=== PATIENT | male | born 1965 | race Caucasian/White ===

== ENCOUNTER 2021-02-15 07:53 | Outpatient (CLI) | payer OTHER, SELFPAY ==
[2021-02-15 08:25] LABS: Hemoglobin A1C 10.6 % (<5.7)
[2021-02-15 08:28] LABS: Hematocrit 43.4 % (42.0-52.0); Hemoglobin 14.7 g/dL (14.0-18.0); Mean Corpuscular HGB Conc 33.9 g/dl (32-36); Mean Corpuscular Hemoglobin 30.2 pg (26-34); Mean Corpuscular Volume 89.3 fl (80-100); Mean Platelet Volume 11.7 fl (7.4-10.4); Platelet Count Result 183 k/mm3 (150-375); Red Blood Count 4.86 M/mm3 (4.6-6.20); Red Cell Distribution Width 12.6 % (11.5-14.5); White Blood Count 6.7 K/mm3 (4.5-10.0)
[2021-02-15 08:31] LABS: Alanine Aminotransferase 52 U/L (4-50); Albumin Level 4.7 g/dL (3.5-5.1); Alkaline Phosphatase 76 U/L (38-126); Amylase 84 U/L (30-110); Anion Gap 8 mmol/L (8-16); Aspartate Amino Transferase 36 U/L (17-59); Bilirubin,Total 0.5 mg/dL (0.2-1.3); Blood Urea Nitrogen 18 mg/dL (9-20); Calcium 9.6 mg/dL (8.4-10.2); Carbon Dioxide 30 mmol/L (22-30); Chloride 103 mmol/L (98-107); Estimated Glomerular Filt Rate > 60; Glucose 252 mg/dL (65-110); Lipase 140 U/L (23-300); Potassium 4.4 mmol/L (3.4-5.0); Sodium 141 mmol/L (137-145)
[2021-02-15 09:03] LABS: Prostate Specific Antigen 0.6 ng/mL (< OR = 4.0)
[2021-02-15 10:06] LABS: Microalbumin Urine Random 32.2 mg/L (0-16.7)
[2021-02-15 10:09] LABS: Creatinine Urine 211.3 mg/dL; MALB Creatinine Ratio 15.2 mg/g (0-30)
[2021-02-19 15:37] LABS: GGT 63 U/L (3-85)
== END 2021-02-15 07:54 | disposition home or self-care (01) ==
LOC: ANHLAB 07:55
PROVIDERS: PCP Family Medicine; Visit Provider Family Medicine
DX: Z12.5 Encounter for screening for malignant neoplasm of prostate (principal); R10.13 Epigastric pain; G89.29 Other chronic pain; C85.93 Non-Hodgkin lymphoma, unspecified, intra-abdominal lymph nodes; E11.65 Type 2 diabetes mellitus with hyperglycemia
CPT/HCPCS: 36415; 80053; 82043; 82150; 82977; 83036; 83690; 84153; 85027; G0103

== ENCOUNTER 2021-09-03 08:15 | Emergency (ER) | payer OTHER, SELFPAY ==
[2021-09-03 08:25] VITALS: BP 120/64; PULSE 99; RESP 16; TEMP 36.8; O2SAT 98
--- NOTE | 2021-09-03 08:43 | ED.GENADULT ---
HPI - General Adult General Chief complaint: Unspecified Stated complaint: Chapped Lips Time Seen by Provider: 09/03/21 08:43 Source: patient Mode of arrival: ambulatory Limitations: no limitations History of Present Illness HPI narrative: 56-year-old male presents with complaint of chapped lips, lips peeling and burning for 3 weeks. Reports that he has been using Chapstick, Vaseline and several other ruhf-[id number]-yfabndn lip remedies with no relief. Only change is a new medication 3 months ago. Was prescribed Jentadueto for his diabetes. has not seen his PCP for this problem. Denies mouth pain, mouth sores. All systems reviewed and negative except as noted above. Related Data Home Medications Medication Instructions Recorded Confirmed cyclobenzaprine 10 mg PO DIRECTED 09/03/21 09/03/21 pantoprazole PO 09/03/21 09/03/21 Allergies Allergy/AdvReac Type Severity Reaction Status Date / Time hydrocodone Allergy Intermediate Itching Verified 09/03/21 08:19 codeine Allergy Unknown Unknown Verified 09/03/21 08:19 tramadol Allergy Unknown Unknown Verified 09/03/21 08:19 prednisone AdvReac Unknown MAKES ME Verified 09/03/21 08:19 ANGRY Contrast Media Allergy Severe HIVES FEET Uncoded 09/03/21 08:19 AND HANDS, GETS PRETREATED PRIOR Review of Systems Review of Systems: CONSTITUTIONAL: Denies fever, chills, or sweats. EYES: Denies visual changes, redness, or discharge. ENT: Denies rhinorrhea, congestion, sore throat, or otalgia. CARDIOVASCULAR: Denies chest pain, palpitations, or edema. RESPIRATORY: Denies cough or dyspnea. GASTROINTESTINAL: Denies abdominal pain, nausea, vomiting, or diarrhea. GENITOURINARY: Denies dysuria or hematuria. SKIN: Denies rash or itching. Reports burning, peeling of skin to lips. MUSCULOSKELETAL: Denies back pain, joint pain, or myalgia. NEUROLOGIC: Denies headache, numbness, or weakness. PSYCHIATRIC: Denies anxiety or depression. All other systems reviewed are negative, except as documented in HPI. [facility] Past Medical History Medical History (Updated 09/03/21 @ 08:55 by Lisa Ko NP) BMI 25.0-25.9,adult BMI 26.0-26.9,adult Chronic epigastric pain Mass in neck Right hand pain Family History Family History Father Acute myocardial infarction Social History Social History Alcohol intake: current Comments At time of signature, agree with nursing past medical, surgical, social and family history. There is no relevant family history pertinent to the presenting complaint. Exam Narrative: GENERAL: This is a well-nourished, well-developed patient, in no apparent distress. HEAD: normocephalic, atraumatic. EYES: PERRL. Sclera clear/white. Vision is grossly intact. EARS: External ears normal NOSE: External nose normal NECK: Neck supple, non-tender without lymphadenopathy, masses or thyromegaly. CARDIOVASCULAR: Regular rate and rhythm without murmurs, gallops, or rubs. RESPIRATORY: Clear to auscultation. Breath sounds equal bilaterally. No wheezes, rales, or rhonchi. SKIN: warm, Dry, with no suspicious lesions or rash, good texture and turgor. Peeling skin to lips, erythematous and mildly swollen. No signs of bacterial or fungal infection. NEURO: awake, alert, and oriented to person, place and time. There were no obvious focal neurologic abnormalities. EXTREMITIES: Normal range of motion to all extremities. Course Course Level of Care: Express Care Visit Vital Signs Vital signs: Vital Signs Temperature 36.8 C 09/03/21 08:25 Pulse Rate 99 09/03/21 08:25 Respiratory Rate 16 09/03/21 08:25 Blood Pressure 120/64 09/03/21 08:25 Pulse Oximetry 98 09/03/21 08:25 Temperature 36.8 C 09/03/21 08:25 Pulse Rate 99 09/03/21 08:25 Respiratory Rate 16 09/03/21 08:25 Blood Pressure 120/64 09/03/21 08:25 Pulse Ox
== END 2021-09-03 08:58 | disposition home or self-care (01) ==
PROVIDERS: Emergency Provider Nurse Practitioner Family; PCP Family Medicine
DX: T69.8XXA Other specified effects of reduced temperature, initial encounter (principal); T38.3X5A Adverse effect of insulin and oral hypoglycemic [antidiabetic] drugs, initial encounter
CPT/HCPCS: 99211; G0463

== ENCOUNTER 2021-10-15 10:17 | Outpatient (CLI) | payer OTHER, SELFPAY ==
--- NOTE | 2021-10-15 11:30 | NEURO_ITS ---
Impression: # Complains of pain in right hand. # Subtle evolving right Carpal Tunnel Syndrome. # Needle/EMG exam not requested. Nerve Conduction Studies Anti Sensory Summary Table Stim Site NR Peak (ms) P-T Amp (?V) Site1 Site2 Delta-P (ms) Dist (cm) Dewayne (m/s) Right Median Anti Sensory (2-3nd Digit) Wrist 3.1 41.3 Wrist 2-3nd Digit 3.1 14.0 45 Wrist 3.4 34.3 Wrist 2-3nd Digit 3.1 14.0 45 Right Radial Anti Sensory (Base 1st Digit) Wrist 2.7 7.2 Wrist Base 1st Digit 2.7 0.0 Right Ulnar Anti Sensory (5th Digit) Wrist 2.7 39.2 Wrist 5th Digit 2.7 14.0 52 Motor Summary Table Stim Site NR Onset (ms) O-P Amp (mV) Site1 Site2 Delta-0 (ms) Dist (cm) Dewayne (m/s) Right Median Motor (Abd Poll Brev) Wrist 3.8 2.3 Elbow Wrist 4.8 30.0 63 Elbow 8.6 2.3 Right Ulnar Motor (Abd Dig Minimi) Wrist 2.5 4.3 A Elbow Wrist 5.6 31.0 55 A Elbow 8.1 4.0 F Wave Studies NR F-Lat (ms) L-R F-Lat (ms) Right Median (Mrkrs) (Abd Poll Brev) 28.22 Right Ulnar (Mrkrs) (Abd Dig Min) 29.45 MTDD
== END 2021-10-15 10:18 | disposition home or self-care (01) ==
PROVIDERS: PCP Family Medicine; Visit Provider Family Medicine
DX: M25.541 Pain in joints of right hand (principal); G56.01 Carpal tunnel syndrome, right upper limb
CPT/HCPCS: 95909

== ENCOUNTER 2022-07-15 08:53 | Outpatient (CLI) | payer OTHER, SELFPAY ==
--- NOTE | ~2022-07-15 | CT_ITS ---
CT Scan of the Chest without Contrast: Clinical Indication: Pulmonary nodule Technique: Contiguous sections were acquired throughout the chest without intravenous contrast. Dose reduction technique was used on this scan by utilizing automated exposure control and iterative recon struction technique. The dose-length product (DLP) was 123.74 mGy-cm. COMPARISON: 09/23/2011 Findings: There is no evidence of any significant mediastinal, hilar or axillary lymphadenopathy. Aberrant righ t subclavian artery noted. Coronary artery calcifications are present. There is no evidence of pleural or pericardial effusion. Stable small irregular density in the right upper lobe (axial image 43). Several calcified granulomas are noted. Images through the upper abdomen reveal no abnormalities. Impression: No significant abnormalities seen. Stable pulmonary findings, as noted above. Stability since 2011 is compatible with benignity. Reviewed, dictated and finalized at [facility]. Impression: No significant abnormalities seen. Stable pulmonary findings, as noted above. Stability since 2011 is compatible w ith benignity.
== END 2022-07-15 08:54 | disposition home or self-care (01) ==
LOC: ANHIMG 08:58
PROVIDERS: PCP Family Medicine; Visit Provider Family Medicine
DX: R91.1 Solitary pulmonary nodule (principal)
CPT/HCPCS: 71250

== ENCOUNTER 2023-02-11 08:07 | Emergency (ER) | payer OTHER, SELFPAY ==
[2023-02-11 08:22] VITALS: BP 133/89; PULSE 90; RESP 18; TEMP 36.5; O2SAT 100
--- NOTE | 2023-02-11 08:25 | ED.EYEPROB ---
HPI - Eye Problem General Chief complaint: Eye Problems Stated complaint: lt eye irritation Time Seen by Provider: 02/11/23 08:20 Source: patient and RN notes reviewed Mode of arrival: ambulatory Limitations: no limitations History of Present Illness HPI Narrative: 57-year-old male presents with concern for left irritation, redness, discomfort since Thursday. Reports he was exposed to his grandchild with pinkeye. He reports crusty drainage. He denies any vision changes. MD chief complaint: eye redness Related Data Allergies Allergy/AdvReac Type Severity Reaction Status Date / Time linagliptin [From [facility]] Allergy Severe Swelling Verified 02/11/23 08:23 of Lip/Tongue/Throat metformin [From [facility]eto] Allergy Severe Swelling Verified 02/11/23 08:23 of Lip/Tongue/Throat hydrocodone Allergy Intermediate Itching Verified 02/11/23 08:23 codeine Allergy Unknown Unknown Verified 02/11/23 08:23 tramadol Allergy Unknown Unknown Verified 02/11/23 08:23 dapagliflozin [From [facility]] AdvReac Intermediate Swelling Verified 02/11/23 08:23 of Lip/Tongue/Throat prednisone AdvReac Unknown MAKES ME Verified 02/11/23 08:23 ANGRY Contrast Media Allergy Severe HIVES FEET Uncoded 07/28/22 15:24 AND HANDS, GETS PRETREATED PRIOR Review of Systems Review of Systems: CONSTITUTIONAL: Denies malaise, chills, sweats, or fever. EYES: Denies visual changes. Reports left eye redness, irritation, discharge, discomfort. ENT: Denies rhinorrhea, congestion, sinus pain, otalgia or sore throat. SKIN: Denies rash or itching. NEUROLOGIC: Denies numbness, weakness, or headache. PSYCHIATRIC: Denies anxiety or depression. All systems reviewed & are unremarkable except as noted in HPI and below PMFSH Past Medical History Medical History BMI 25.0-25.9,adult BMI 26.0-26.9,adult BMI 27.0-27.9,adult BMI 28.0-28.9,adult Chronic epigastric pain Hand tendonitis Lung nodule Mass in neck Right hand pain Family History Family History Father Acute myocardial infarction Social History Social History Social History: pt is a non smoker Smoking status: Never smoker Alcohol intake: current Comments At time of signature, agree with nursing past medical, surgical, social and family history. There is no relevant family history pertinent to the presenting complaint Exam Narrative: GENERAL: Well-appearing, well-nourished, and in no acute distress. HEAD: Normocephalic, atraumatic. EYES: PERRLA, right sclera clear, and EOMI. No nystagmus. Left lower and conjunctivae injected. Upper and lower eyelid unremarkable, no periorbital edema noted ENT: Nares clear, turbinates pink, no rhinorrhea or epistaxis. Mucous membranes moist. TM pearly veloz with sharp light reflex bilaterally; no tragal tenderness. NECK: Supple. CHEST: No respiratory distress. Speaks in full sentences. HEART: Regular rate and rhythm. SKIN: Warm, dry, no visible rash. NEURO: Alert and oriented x3. PSYCH: Normal mood and affect Course Course Emergency Course: Patient is aware of diagnosis, understands and agrees to treatment plan. Anticipatory guidance given. Patient agrees to follow-up as directed and is aware of reasons to seek care at the emergency department. Portions of this record may have been created with voice recognition software Level of Care: Express Care Visit Vital Signs Vital signs: Vital Signs Temperature 97.7 F 02/11/23 08:22 Pulse Rate 90 02/11/23 08:22 Respiratory Rate 18 02/11/23 08:22 Blood Pressure 133/89 02/11/23 08:22 Pulse Oximetry 100 02/11/23 08:22 Oxygen Delivery Room Air 02/11/23 08:22 Temperature 97.7 F 02/11/23 08:22 Pulse Rate 90 02/11/23 08:22 Respiratory Rate 18 02/11/23 08:22 Blood Pres
== END 2023-02-11 08:34 | disposition home or self-care (01) ==
PROVIDERS: Emergency Provider Nurse Practitioner; PCP Family Medicine
DX: H10.9 Unspecified conjunctivitis (principal)
CPT/HCPCS: 99213; G0463

== ENCOUNTER 2023-02-18 08:01 | Outpatient (CLI) | payer OTHER, SELFPAY ==
[2023-02-18 08:34] LABS: Basophils Absolute Auto 0.1 K/mm3 (0.0-0.1); Basophils Percent Auto 0.9 % (0.2-1.2); Eosinophils Absolute Auto 0.3 K/mm3 (0-0.3); Eosinophils Percent Auto 3.8 % (0-4.4); Hematocrit 44.4 % (42.0-52.0); Hemoglobin 14.8 g/dL (14.0-18.0); Immature Granulocyte Absolute 0.03 K/mm3 (0.00-0.031); Immature Granulocyte Percent A 0.3 % (0-0.5); Lymphocytes Absolute Auto 2.14 K/mm3 (0.9-3.2); Mean Corpuscular HGB Conc 33.3 g/dl (32-36); Mean Corpuscular Hemoglobin 29.7 pg (26-34); Mean Corpuscular Volume 89.2 fl (80-100); Mean Platelet Volume 11.7 fl (7.4-10.4); Monocytes Absolute Auto 0.6 K/mm3 (0.1-0.6); Monocytes Percent Auto 6.7 % (2.6-8.5); Neutrophils Absolute Auto 5.7 K/mm3 (1.3-6.7); Neutrophils Percent Auto 64.3 % (45.5-73.1); Platelet Count Result 238 k/mm3 (150-375); Red Blood Count 4.98 M/mm3 (4.6-6.20); Red Cell Distribution Width 11.9 % (11.5-14.5); White Blood Count 8.9 K/mm3 (4.5-10.0)
[2023-02-18 08:44] LABS: Alanine Aminotransferase 126 U/L (6-50); Albumin Level 4.7 g/dL (3.5-5.1); Alkaline Phosphatase 99 U/L (38-126); Anion Gap 9 mmol/L (8-16); Aspartate Amino Transferase 75 U/L (17-59); Bilirubin,Total 0.5 mg/dL (0.2-1.3); Blood Urea Nitrogen 18 mg/dL (9-20); Calcium 9.5 mg/dL (8.4-10.2); Carbon Dioxide 31 mmol/L (22-30); Chloride 94 mmol/L (98-107); Cholesterol 213 mg/dL (0-200); Estimated Glomerular Filt Rate > 60; Glucose 317 mg/dL (65-110); HDL Direct 39 mg/dL; Potassium 4.4 mmol/L (3.4-5.0); Sodium 134 mmol/L (137-145); Triglycerides 292 mg/dL (<150)
[2023-02-18 08:55] LABS: LDL Cholesterol Direct 127 mg/dL
[2023-02-18 09:15] LABS: Prostate Specific Antigen 0.6 ng/mL (< OR = 4.0)
[2023-02-18 11:23] LABS: Creatinine Urine 64.4 mg/dL
[2023-02-18 11:34] LABS: MALB Creatinine Ratio 9.5 mg/g (0-30); Microalbumin Urine Random 6.1 mg/L (0-16.7)
== END 2023-02-18 08:02 | disposition home or self-care (01) ==
LOC: ANHLAB 08:03
PROVIDERS: PCP Family Medicine; Visit Provider Physician Assistant Medical
DX: Z12.5 Encounter for screening for malignant neoplasm of prostate (principal); E11.65 Type 2 diabetes mellitus with hyperglycemia; E78.5 Hyperlipidemia, unspecified; I10 Essential (primary) hypertension; K21.9 Gastro-esophageal reflux disease without esophagitis
CPT/HCPCS: 36415; 80053; 80061; 82043; 84153; 84443; 85025; G0103

== ENCOUNTER 2023-08-28 08:53 | Outpatient (CLI) | payer OTHER, SELFPAY ==
[2023-08-28 09:47] LABS: Alanine Aminotransferase 39 U/L (6-50); Albumin Level 4.6 g/dL (3.5-5.1); Alkaline Phosphatase 84 U/L (38-126); Aspartate Amino Transferase 38 U/L (17-59); Bilirubin,Total 0.8 mg/dL (0.2-1.3)
[2023-08-28 10:06] LABS: Hepatitis B Surface Antigen Negative (Negative)
[2023-08-28 10:12] LABS: HAV RESULT Negative (Negative); Hepatitis B Core IgM Result Negative (Negative)
[2023-08-28 10:23] LABS: Hepatitis C Virus Antibody Negative (Negative)
== END 2023-08-28 08:54 | disposition home or self-care (01) ==
PROVIDERS: PCP Family Medicine; Visit Provider Physician Assistant Medical
DX: R79.89 Other specified abnormal findings of blood chemistry (principal)
CPT/HCPCS: 36415; 80074; 80076; 82977

== ENCOUNTER 2023-11-30 13:32 | Outpatient (CLI) | payer OTHER, SELFPAY ==
--- NOTE | ~2023-11-30 | XR_ITS ---
Clinical Indication: Bronchitis PA and lateral views of the chest: Comparison: 04/01/2018 Findings: The lungs are clear, without evidence of focal consolidation or pleural effusion. Cardiome diastinal silhouette is within normal limits. Bones and soft tissues are unremarkable. Impression: Normal chest. Reviewed, dictated and finalized at [facility]. Impression: Normal chest.
== END 2023-11-30 13:33 | disposition home or self-care (01) ==
LOC: ANHIMG 13:33
PROVIDERS: PCP Family Medicine; Visit Provider Family Medicine
DX: J20.9 Acute bronchitis, unspecified (principal)
CPT/HCPCS: 71046

== ENCOUNTER 2023-12-11 01:00 | Day surgery (SDC) | payer OTHER, SELFPAY ==
[2023-12-09 10:01] VITALS: BMI 24.4
--- NOTE | 2023-12-09 10:03 | PC.NURSE ---
Report to the Outpatient Waiting Room, entrance under the green pavilion located off [facility], at time ____0645___ on date ____12/11/23___. Planned Procedure Time: ____0845____. Time changes happen often and if your time is changed the preop area will call you the afternoon before. - You and your visitor will be asked to self-screen and do not enter if you have any COVID symptoms. - A mask is optional within the hospital at this time. Patients may have clear liquids (water, carbonated beverages, clear teas, apple juice) until 3 hours prior to surgery with a maximum of 20 ounces. - No food from midnight until time of surgery Take the following medications with a SIP of water the morning of surgery: NA DO NOT STOP ANY OF YOUR OTHER PRESCRIPTION MEDICATIONS PRIOR TO SURGERY ?EXCEPT THE FOLLOWING Medications to discontinue per physician NA Date to take last dose Please no make-up, nail english, hairspray, perfume, deodorant, or body powder the day of surgery. No jewelry (including any body piercings) or valuables the day of surgery, leave them at home. Please take a shower or bath the night before, or the morning of, surgery with an antibacterial soap. Wear comfortable, loose fitting clothing. Children are encouraged to wear pajamas. - Jewelry must be removed prior to entering the operating room. Rings and piercings that are not removed may be cut off. - The hospital will not accept responsibility for valuables. - Please leave all valuables, including medications, at home the day of surgery. If you are going home after surgery, a licensed carrier driver must drive you home. - NO public transportation without another adult if you receive anesthesia. - We recommend that an adult stay with you for 24 hours following discharge. - We also recommend that you do not drive, make important decision, drink alcoholic beverages, or take any drugs that were not prescribed by your health care provider for at least 24 hours after your discharge time. For Pediatric surgeries, we recommend two adults accompany the child home. Follow any additional instructions given to you from your surgeon. If you or anyone in your household have experienced Covid symptoms in the past week, please notify your surgeon or the nurse liaison at the phone number below for possible testing. Telephone instructions given to patient and asked if any additional questions and then verbalized understanding. Patient advised to call surgeon office or pre surgery nurse liaison [phone] if any additional questions.
--- NOTE | 2023-12-10 16:19 | P.HP_ITS ---
H&P: HPI History of Present Illness Date/Time: 12/10/23 16:19 Chief Complaint: tonsillar cyst Narrative: planned procedure Review of Systems Review of Systems: All systems reviewed & are unremarkable except as noted in HPI and below [facility] Past Medical History Medical History Chronic epigastric pain Hand tendonitis Lung nodule Mass in neck Other chronic pain Right hand pain Screening for prostate cancer Family History Family History Father Acute myocardial infarction Social History Social History Social History: pt is a non smoker Smoking status: Never smoker Alcohol intake: current Substance use: never Substance use type: does not use Living arrangements: with family Spiritual care concerns: No Meds Home Medications and Allergies Home Medications Medication Instructions Recorded Confirmed Type cyclobenzaprine 10 mg tablet See Rx Instructions .Route 10/26/23 12/09/23 Rx .COMPLEX #30 tabs Allergies Allergy/AdvReac Type Severity Reaction Status Date / Time linagliptin [From Jentadueto] Allergy Severe Swelling Verified 12/09/23 10:03 of Lip/Tongue/Throat metformin [From Jentadueto] Allergy Severe Swelling Verified 12/09/23 10:03 of Lip/Tongue/Throat hydrocodone Allergy Intermediate Itching Verified 12/09/23 10:03 Iodinated Contrast Media Allergy Mild Unknown Verified 12/09/23 10:03 codeine Allergy Unknown Unknown Verified 12/09/23 10:03 tramadol Allergy Unknown Unknown Verified 12/09/23 10:03 dapagliflozin [From [facility]] AdvReac Intermediate Swelling Verified 12/09/23 10:03 of Lip/Tongue/Throat prednisone AdvReac Unknown MAKES ME Verified 12/09/23 10:03 ANGRY Exam Narrative: tonsillar cyst Assessment and Plan Assessment and plan (1) Tonsillar cyst: Code(s): J35.8 - Other chronic diseases of tonsils and adenoids Status: Acute Assessment and Plan: Plan OR excision of tonsillar cyst. Total operative time 15 minutes. Will be set up like a tonsil I will need the needle tip Bovie protected. Risks were discussed bleeding infection damage to other structures rigor versus failure resolve symptoms. Exchanged for the clavicle my cell change in taste changes what could be permanent need for follow-up time-out for time off school inherent risk of narcotic use of narcotics prescribed damaging structure induction remains of anesthesia including vocal cord paralysis.
[2023-12-11] VITALS (7 sets, daily range): BP systolic 130–152; BP diastolic 86–104; PULSE 78–92; RESP 12–18; TEMP 36.3–36.4; O2SAT 94–100
[2023-12-11] MEDS: ACETAMINOPHEN 500 MG TABLET 1000 MG PO (07:28)
--- NOTE | 2023-12-11 07:32 | WPDHPUPDATE1 ---
History and Physical Update Update Date/Time: 12/11/23 07:32 History and Physical has been reviewed, including an updated exam of the patient. There are NO changes in the patient's condition. Risks, benefits, and alternatives have been discussed and questions answered. Patient agrees to proceed with procedure.
--- NOTE | 2023-12-11 07:55 | WPDANESEPPF ---
Anes - Initial Pre Proc Eval Procedure: Operation Date: 12/11/23 08:45 Proposed Procedures p Excision Right Tonsillar Cyst - Benitez Cuevas MD Date/Time: 12/11/23 07:55 Surgeon: Benitez Cuevas MD Pre Op Diagnosis: Chronic Tonsilitits Patient Data Age: 58 Gender: M Height: 1.8 m Weight: 77.2 kg Last Vital Signs Temp 36.4 C 12/11/23 07:24 Pulse 90 12/11/23 07:24 Resp 18 12/11/23 07:24 BP 150/100 H 12/11/23 07:24 Pulse Ox 100 12/11/23 07:24 O2 Del Method Room Air 12/11/23 07:24 Allergies Allergy/AdvReac Type Severity Reaction Status Date / Time [facility] Allergy Severe Swelling Verified 12/11/23 07:23 of Lip/Tongue/Throat [facility] Allergy Severe Swelling Verified 12/11/23 07:23 of Lip/Tongue/Throat hydrocodone Allergy Intermediate Itching Verified 12/11/23 07:23 Iodinated Contrast Media Allergy Mild Unknown Verified 12/11/23 07:23 codeine Allergy Unknown Unknown Verified 12/11/23 07:23 tramadol Allergy Unknown Unknown Verified 12/11/23 07:23 dapagliflozin [From [facility]] AdvReac Intermediate Swelling Verified 12/11/23 07:23 of Lip/Tongue/Throat prednisone AdvReac Unknown MAKES ME Verified 12/11/23 07:23 ANGRY Home Medications Medication Instructions Recorded Confirmed Type cyclobenzaprine 10 mg tablet See Rx Instructions .Route 10/26/23 12/11/23 Rx .COMPLEX #30 tabs Patient hx anesthesia problems: none Family hx anesthesia problems: none Results Review: All pre-operative results and documents have been reviewed as part of the pre-operative evaluation. [facility] Past Medical History Medical History Chronic epigastric pain Hand tendonitis Lung nodule Mass in neck Other chronic pain Right hand pain Screening for prostate cancer Family History Family History Father Acute myocardial infarction Social History Social History Social History: pt is a non smoker Smoking status: Never smoker Alcohol intake: current Substance use: never Substance use type: does not use Living arrangements: with family Spiritual care concerns: No Anes - Eval Final PreProcedure Day of Procedure 12/11/23 07:55 Patient weight: normal Heart: regular rate and rhythm Lungs: clear to auscultation Airway: Mallampati scale class II Neurological: alert and oriented Last oral intake: >/= 8 hours ASA classification: II Emergent: no Anesthetic plan: proceed Anesthesia type and monitoring: general ETT and standard monitoring Results Review: All pre-operative results and documents have been reviewed as part of the pre-operative evaluation. Informed Consent: The patient's anesthetic plan and its attendant risks and benefits were discussed with the patient/family/POA. Questions were solicited and answers provided to the satisfaction of the patient/family/POA.
--- NOTE | 2023-12-11 08:23 | WPDHPUPDATE1 ---
History and Physical Update Update Date/Time: 12/11/23 08:23 Right-sided tonsil cystectomy
[2023-12-11] MEDS: LACTATED RINGERS 1,000 ML 30 ML IV CONT (08:54)
[2023-12-11 09:02] LABS: Glucose Point of Care 138 mg/dl (65-105)
--- NOTE | 2023-12-11 09:06 | W.PM.PROC2 ---
Procedure Note - Detailed Date of Procedure 12/11/23 Pre-op Diagnosis Dysphagia right tonsillar cyst Post-op Diagnosis Same Procedure Performed right tonsillar cystectomy Surgeon Benitez Cuevas MD Anesthesia General Indications see above Findings right tonsillar cyst mid vault excised without no bleeding subcentimeter in size Description of Procedure patient identified consent verified preop. Patient without room. Time-out performed. General anesthesia induced endotracheal tube secured. Patient prepped draped position procedure confirmed 2nd time-out performed. McIvor mouth gag inserted tonsillar cysts located excised with needle-tip Bovie electrocautery setting of 8 no bleeding the bed was cauterized part of the posterior pillar was flattened so that up pocket to catch food was not created. McIvor mouth gag lowered for 30 seconds reopened no bleeding at all McIvor mouth gag removed care the patient back to Anesthesiology. I performed all dictated portions procedure no complications. Patient taken to PACU Estimated Blood Loss 0 Drains No Packing No Pathology Yes Complications No immediate complications Condition Stable Disposition PACU [facility] Billing Surgery - Charge Forward: Surgery Billing
--- NOTE | 2023-12-11 10:09 | SUR.PHASEII ---
Patient has been given discharge instructions and has had his IV removed. We are just awaiting his ride to pick him up. Patient stable and has no concerns at this time.
== END 2023-12-11 10:18 | disposition home or self-care (01) ==
PROVIDERS: PCP Family Medicine; Visit Provider Otolaryngology
PROC: (CPT 42808; principal; 2023-12-11 08:45)
DX: J35.8 Other chronic diseases of tonsils and adenoids (principal)
CPT/HCPCS: 42808; 82948; 88305; A9270; J0330; J2250; J2405; J2704; J3010; J7120

== ENCOUNTER 2024-08-12 19:01 | Emergency (ER) | payer OTHER, SELFPAY ==
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
--- OUTSIDE RECORDS SUMMARY | 2024-08-12 19:03 | XMS_ITS | Clinical Summary ---
Author Organization [facility] Address [facility] [place] [address] Care Team Providers Care Information Broker Name Role Phone Veto Marquez MD Primary Care Provider [phone] Allergies Active Allergy Reactions Criticality Noted Date Comments Codeine Itching 03/16/2017 Iodine Hives 03/16/2017 Medications No known medications Active Problems Problem Noted Date Diagnosed Date Lumbar radiculopathy 03/16/2017 Social History Tobacco Use Types Packs/Day Years Used Date Smoking Tobacco: Never Smokeless Tobacco: Never Alcohol Use Standard Drinks/Week Comments Yes 0 (1 standard drink = 0.6 oz pur e alcohol) SOCIALLY Sex and Gender Information Value Date Recorded Sex Assigned at Not on file Legal Sex Male 6:35 PM CDT Gender Identity Not on file Sexual Orientation Not on file Last Filed Vital Signs Vital Sign Reading Time Taken Comments Blood Pressure 178/114 04/08/2017 9:48 AM ED MANAGER Pulse 96 04/08/2017 9:48 AM ED MANAGER Temperature 36.9 C (98.4 F) 04/08/2017 8:45 AM ED MANAGER Respiratory Rate 18 04/08/2017 9:48 AM ED MANAGER Oxygen Saturation 96% 04/08/2017 9:48 AM ED MANAGER Inhaled Oxygen Concentration - - Weight 83.3 kg (183 lb 10.3 oz) 04/08/2017 8:45 AM ED MANAGER Height 180.3 cm (5' 11 ) 04/08/2017 8:45 AM ED MANAGER Body Mass Index 25.61 04/08/2017 8:45 AM ED MANAGER Plan of Treatment Health Maintenance Due Date Last Done Comments Colorectal Cancer Screening Colonoscopy (10 Years) 1965 Annual Physical 1968 Hepatitis C 1983 DTaP, Tdap and Td Vaccines ( 1 - Tdap) 1984 Pneumococcal Vaccine: 50+ Ye ars (1 of 1 - PCV) 2015 Zoster Vaccines (1 of 2) 2015 COVID-19 Vaccine (1 - 2023-2 5 season) 2023 Meningococcal B Vaccine Aged Out No l onger eligible based on patient's age to complete this topic Meningococcal Vaccine Aged Out No doug michael eligible based on patient's age to complete this topic RSV Immunizations Under 20 Months Aged Out No longer eligible based on patient's age to complete this topic Insurance [employer] Care Teams Information Broker Relationship Specialty Start Date End Date Veto Marquez MD [address] [place], [place] [id number] PCP - General 11/05/16
--- OUTSIDE RECORDS SUMMARY | 2024-08-12 19:03 | XMS_ITS | CONTINUITY OF CARE DOCUMENT ---
Author Name kimberley genarovance Address Unknown Organization [facility] Address [address] [place] [address] Phone [phone] Care Team Providers Care Planner Intern Name Role Phone Gustavo Chambers MD Unavailable [phone] OTF ENCARNACION, ALVARO F Unavailable OTF ENCARNACION, ALVARO F Unavailable [phone] PROBLEMS Condition Status Date Provider Notes CHEST PAIN active Gustavo Chambers MD Shortness of breath active Gustavo Chambers MD Lymphoma non-Hodgekin's active Gustavo Chambers MD Back Pain active Gustavo Chambers MD Hypertension active Johan Kothari Hyperlipidemia active Gustavo Chambers MD CAD active Gustavo Chambers MD ENCOUNTERS Date Type Provider Location Encounter Diag nosis - In-person encounter Office Visit Gustavo Chambers MD [facility] - In-person encounter Office Visit Gustavo Chambers MD [facility] - In-person encounter Office Visit Gustavo Chambers MD [facility] HyperlipidemiaCAD - In-person encounter Office Visit Gustavo Chambers MD [facility] CHEST PAINShortness of breathLymphoma non-Hodgekin'sBack PainHypertension VITAL SIGNS Date Observation Value Provider Body Mass Index (Ratio) 26.64 kg/m2 Amanda Soriano blood pressure, resting Yes Reed Guajardo blood pressure, diastolic 80 mm[Hg] elisabeth Guajardo blood pressure, systolic 140 mm[Hg] She josefa Guajardo oxygen saturation, oximetry 98 % Kristen Guajardo pulse rate 84 /min Kristen mckeon respiratory rate E&M 18 /min Addy Guajardo weight E&M 191 [lb_av] Kristen denneyd height E&M 71 [in_i] Kristen mckeon Body Mass Index (Ratio) 27.19 kg/m2 Deshaun Kothari oxygen saturation, oximetry 98 % [facility] Yong blood pressure, diastolic 81 mm[Hg] astity Yong blood pressure, systolic 119 mm[Hg] Twyla stity Yong pulse rate 82 /min [facility] rate E&M 16 /min Chastit y Yong weight E&M 195 [lb_av] Chastity Yong height E&M 71 [in_i] Chastity Yong Body Mass Index (Ratio) 28.45 kg/m2 Deshaun Kothari blood pressure, cuff size regular Cy darvin Wolfe blood pressure, diastolic 80 mm[Hg] Cy ntmonicaa Aiden blood pressure, systolic 140 mm[Hg] Marilu natan Wolfe oxygen saturation, oximetry 98 % Suellen Wolfe respiratory rate E&M 16 /min Suellen Wolfe pulse rate 71 /min Suellen Yovanybel l weight E&M 204 [lb_av] Suellen Campbel l height E&M 71 [in_i] Suellen Campbel l Body Mass Index (Ratio) 27.89 kg/m2 Deshaun Kothari blood pressure, diastolic, supine 100 mm[ Hg] Maria Eugenia Chavez blood pressure, systolic, supine E&M 130 mm[Hg] Maria Eugenia Chavez blood pressure, cuff size regular Cr braulio Chavez blood pressure, diastolic 90 mm[Hg] Cr braulio Chavez blood pressure, systolic 140 mm[Hg] Cry stal Scott oxygen saturation, oximetry 99 % Maria Eugeina Chavez respiratory rate E&M 17 /min Maria Eugenia Chavez pulse rate 96 /min Maria Eugenia esquivel weight E&M 200 [lb_av] Maria Eugenia esquivel height E&M 71 [in_i] Maria Eugenia esquivel blood pressure, resting Yes Nataliia barbara Scott ALLERGIES Allergy Name Onset Date Reaction Criticality Status PREDNISONE High Criticality active CONTRAST DYE Low Criticality active CODEINE Low Criticality active RESULTS Date Observation Value Provider Reference Range Interpretation Location 8 LDL cholesterol, serum 143 mg/dL Johan [facility] 8 prothrombin time (patient) 11.5 s [facility] 9.1-12.0 8 international normalized ratio (INR) 1.1 [facility] 0.8-1.2 8 lipoprotein, beta, serum, point, quantitative, calculated 143 mg/dL [facility] 0-99 High 8 very low density lipoproteins 42 mg/dL [facility] 5-40 High 8 HDL cholesterol, serum 38 mg/dL [facility] >39 Low 8 triglyceride, serum, random 208 mg/dL [facility] 0-149 High 8 cholesterol, serum 223 mg/dL [facility] 100-199 High 8 calcium, serum 9.6 mg/dL [facility] 8.7-10.2 8 carbon dioxide, venous blood 24 mmol/L [facility] 20-29 8 chloride, serum 100 mmol/L [facility] 96-106 8 potassium, serum 4.4 mmol/L [facility] 3.5-5.2 8 sodium, serum 140 mmol/L [facility] [phone] 8 urea nitrogen/creatini ne ratio, serum 16 [facility] 9-20 8 eGFR if 92 mL/min/{1 .73_m2} [facility] >59 8 eGFR if not 80 mL/min/{1 .73_m2} [facility] >59 8 creatinine, serum 1.06 mg/dL [facility] 0.76-1.27 8 urea nitrogen, blood 17 mg/dL [facility] 6-24 8 blood glucose, random 165 mg/dL [facility] 65-99 High 8 basophil count, absolute 0.1 x10E3/uL [facility] 0.0-0.2 8 Eosinophil Absolute Count 0.3 X10E3/UL [facility] 0.0-0.4 8 monocyte count, blood, automated 0.7 X10E3/UL [facility] 0.1-0.9 8 lymphocyte count, blood, automated 1.9 X10E3/UL [facility] 0.7-3.1 8 Absolute Neutrophils 4.3 X10E3/UL [facility] 1.4-7.0 8 basophils as percent of blood leukocytes 1 % [facility] Not Estab. 8 eosinophils as percent of blood leukocytes 4 % [facility] Not Estab. 8 monocytes as percent of blood leukocytes 9 % [facility] Not Estab. 8 lymphocytes as percent of blood leukocytes 27 % [facility] Not Estab. 8 neutrophils as percent of blood leukocytes 59 % [facility] Not Estab. 8 platelet count 224 X10E3/UL [facility] [phone] 8 red blood cell distribution width 13.2 % [facility] 12.3-15.4 8 mean corpuscular hemoglobin concentration, RBC 33.0 G/DL [facility] 31.5-35.7 8 mean corpuscular hemoglobin, RBC 29.5 pg [facility] 26.6-33.0 8 mean corpuscular volume, RBC 89 fL [facility] 79-97 8 hematocrit, blood 44.0 % [facility] 37.5-51.0 8 hemoglobin, blood 14.5 g/dL [facility] 13.0-17.7 8 erythrocyte (RBC) count 4.92 X10E6/UL [facility] 4.14-5.80 8 leukocyte count, blood 7.3 X10E3/UL [facility] 3.4-10.8 HISTORY OF MEDICATION USE Medication Status Instructions Dates Provider Indications [facility] AMLODIPINE BESYLATE 10 MG ORAL TABLET active TK 1 T PO D Twylastity Yong #90, 90 days supply, Prescribed by DINAH GONZALEZ, Filled 03/29/2020 METFORMIN HCL 500 MG ORAL TABLET completed Take 1 tab daily - [place] BENADRYL 25 MG ORAL CAPSULE completed 2 tabs morning of the procedure - Suellen Wolfe PEPCID 20 MG ORAL TABLET completed one tab at bedtime day prior to procedure and one tab morning of the procedure - Suellen Wolfe PREDNISONE 50 MG ORAL TABLET completed one tab with dinner and at bedtime the night before procedure one tab morning of procedure - Suellen Wolfe ATORVASTATIN CALCIUM 40 MG ORAL TABLET completed Take one tablet daily. - [place] ASPIRIN ADULT LOW DOSE 81 MG ORAL TABLET DELAYED RELEASE active One Tab By Mouth Daily Gustavo Chambers MD NITROSTAT 0.4 MG SUBLINGUAL TABLET SUBLINGUAL completed apply one tab under tongue every 5 minutes for 3 total doses as needed for chest pain. If no relief after 3rd dose, go to ER - [place] METOPROLOL TARTRATE 25 MG ORAL TABLET completed one tab. twice daily - [place] LISINOPRIL-HYDRO CHLOROTHIAZIDE 10-12.5 MG ORAL TABLET active TK 1 T PO QD Maria Eugenia Chavez #30, 30 days supply, Prescribed by DINAH GONZALEZ, Filled 08/16/2018 SOCIAL HISTORY Date Observation Value Provider social history E&M S moking History: P zach has never smoked. Nidia Soriano social history reviewed E&M revi ewed - no changes required Nidia Soriano smoking status Never smoker Kristen klein smoking status Never smoker Johan Tina hawkins social history reviewed E&M revi ewed - no changes required Johan [facility] social history E&M Smoking Histo ry: P zach has never smoked. [facility] social history reviewed E&M revi ewed - no changes required Gustavo Chambers MD smoking status Never smoker Suellen Reta torres social history reviewed E&M revi ewed - no changes required [facility] social history E&M Smoking Histo ry: P zach has never smoked. [facility] smoking status Never smoker Maria Eugenia [place] FUNCTIONAL STATUS Date Observation Value Provider HRA, CV Assess/Plan, Angina (inactive) Management Plan continue current therapy Nidia Soriano HRA, CV Assess/Plan, Angina (inactive) Management Plan continue current therapy Johan [facility] HRA, CV Assess/Plan, Angina (inactive) Management Plan continue current therapy Gustavo Chambers MD FAMILY HISTORY Family Member Condition Full Sister Family History of Di abetes: Full Sister Family History of Co ronary Artery Disease: INSURANCE PROVIDERS Payer name Policy type / Coverage type [employer] red democrat [place] MEDICAID (2) Medicaid [id number] ADVANCE DIRECTIVES Name Date DISCUSSED - NO DECISION MADE TREATMENT PLAN Date Name Performer Cardiology: B P today: 140/80 P rior BP: 119/81 (08/29/2020) Labs Reviewed: C reat: 1.06 (10/12/2018) C hol: 223 (10/12/2018) HDL: 38 (10/12/2018) His updated medication list for this problem includes: Amlodipine Besylate 10 Mg Oral Tablet (Amlodipine besylate) ..... Tk 1 t po d Aspirin Adult Low Dose 81 Mg Oral Tablet Delayed Release (Aspirin) ..... One tab by mouth daily Lisinopril-hydrochlorothiazide 10-12.5 Mg Oral Tablet (Lisinopril-hydrochlorothiazide) ..... Tk 1 t po qd Nidia Soriano Cardiology:LDL was 1 43, I recommended he take statins, however he refuses. I recommended a further workup for known cardiac chest pain by primary physacian. Nidia Soriano Cardiology: Echo was normal. H is updated medication list for this problem includes: Amlodipine Besylate 10 Mg Oral Tablet (Amlodipine besylate) ..... Tk 1 t po d Aspirin Adult Low Dose 81 Mg Oral Tablet Delayed Release (Aspirin) ..... One tab by mouth daily Lisinopril-hydrochlorothiazide 10-12.5 Mg Oral Tablet (Lisinopril-hydrochlorothiazide) ..... Tk 1 t po qd Nidia Weinerdaisy Cardiology:Pt has ma rked tendonitis below the left rib cage. Echo was normal. Pain very unlikely to be of cardiac origin. H is updated medication list for this problem includes: Amlodipine Besylate 10 Mg Oral Tablet (Amlodipine besylate) ..... Tk 1 t po d Aspirin Adult Low Dose 81 Mg Oral Tablet Delayed Release (Aspirin) ..... One tab by mouth daily Lisinopril-hydrochlorothiazide 10-12.5 Mg Oral Tablet (Lisinopril-hydrochlorothiazide) ..... Tk 1 t po qd Nidia Soriano Cardiology:The follo wing medications were removed from the medication list: Atorvastatin Calcium 40 Mg Oral Tablet (Atorvastatin calcium) ..... Take one tablet daily. Johan Kothari Cardiology:BP today: 119/81 P rior BP: 140/80 (11/22/2018) His updated medication list for this problem includes: Amlodipine Besylate 10 Mg Oral Tablet (Amlodipine besylate) ..... Tk 1 t po d Lisinopril-hydrochlorothiazide 10-12.5 Mg Oral Tablet (Lisinopril-hydrochlorothiazide) ..... Tk 1 t po qd [facility] Cardiology:Pt compla ins of episodes of chest pain, which have at times woken him up from sleep. He had mild plaque on his cath two years ago. He does not want to undergo cardiac cath at this time. We will schedule an echo. [facility] Cardiology:Pt compla ins of episodes of chest pain, which have at times woken him up from sleep. He had mild plaque on his cath two years ago. He does not want to undergo cardiac cath at this time. We will schedule an echo. His updated medication list for this problem includes: Amlodipine Besylate 10 Mg Oral Tablet (Amlodipine besylate) ..... Tk 1 t po d Aspirin Adult Low Dose 81 Mg Oral Tablet Delayed Release (Aspirin) ..... One tab by mouth daily Lisinopril-hydrochlorothiazide 10-12.5 Mg Oral Tablet (Lisinopril-hydrochlorothiazide) ..... Tk 1 t po qd [facility] Cardiology hospital follow up :Echo was normal. Cardiac cath showed mild plaque. Pt saw Dr. Potts and had upper endoscopy which did not show any significant pathology. CT of the abdomen revealed thickening of the mucosal wall of the stomach and of the sigmoid colon. Pt was advised to contact Dr. Potts for further workup and we will send a copy of the CT to Dr. Potts. [facility] follow up :LDL was 143 and he was started on Lipitor. Recommended to check lipid and liver panels in 2 months. [facility] follow up :BP today: 140/80 P rior BP: 130/100 (09/24/2018) H is updated medication list for this problem includes: Metoprolol Tartrate 25 Mg Oral Tablet (Metoprolol tartrate) ..... One tab. twice daily Lisinopril-hydrochlorothiazide 10-12.5 Mg Oral Tablet (Lisinopril-hydrochlorothiazide) ..... Tk 1 t po qd [facility] follow up :Echo was normal. Cardiac cath showed mild plaque. His updated medication list for this problem includes: Aspirin Adult Low Dose 81 Mg Oral Tablet Delayed Release (Aspirin) ..... One tab by mouth daily Nitrostat 0.4 Mg Sublingual Tablet Sublingual (Nitroglycerin) ..... Apply one tab under tongue every 5 minutes for 3 total doses as needed for chest pain. if no relief after 3rd dose, go to er Metoprolol Tartrate 25 Mg Oral Tablet (Metoprolol tartrate) ..... One tab. twice daily Lisinopril-hydrochlorothiazide 10-12.5 Mg Oral Tablet (Lisinopril-hydrochlorothiazide) ..... Tk 1 t po qd Johan [facility] Cardiology:BP today: 140/90 His updated medication list for this problem includes: Metoprolol Tartrate 25 Mg Oral Tablet (Metoprolol tartrate) ..... One tab. twice daily Lisinopril-hydrochlorothiazide 10-12.5 Mg Oral Tablet (Lisinopril-hydrochlorothiazide) ..... Tk 1 t po qd Johan [facility] Cardiology:He has hx of non-Hodgekin's lymphoma treated in 2011. Johan [facility] Cardiology:Pt compla ins of chest pain and SOB with minimal exertion, associated with diaphoresis and numbness in the right arm. He has had chest pain for years but it has recently worsened. He had a normal myoview scan in 2013. He denies prior cardiac hx. He has family history of CAD. In view of his symptoms, I recommend echo and cardiac cath. We will also start baby ASA, Lopressor 25mg BID and ntg sub/l. Johan [facility] Cardiology:Pt compla ins of chest pain and SOB with minimal exertion, associated with diaphoresis and numbness in the right arm. He has had chest pain for years but it has recently worsened. He had a normal myoview scan in 2013. He denies prior cardiac hx. He has family history of CAD. In view of his symptoms, I recommend echo and cardiac cath. We will also start baby ASA, Lopressor 25mg BID and ntg sub/l. Johan Sutherlandberg Date Name Complete Echo PROTHROMBIN TIME WIT H INR CBC (INCLUDES DIFF/P LT) LIPID PANEL BASIC METABOLIC PANE L W/EGFR Cardiac Cath - Left - [facility] Complete Echo HISTORY OF PROCEDURES Procedure Date Procedure Name Provider Procedure Notes S tatus EKG Gustavo Chambers MD completed EKG Gustavo Chambers MD completed
--- OUTSIDE RECORDS SUMMARY | 2024-08-12 19:04 | XMS_ITS | Encounter Summary ---
Author Organization [facility] Address [address] [place] [address] Phone Care Team Providers Care Traffic Agent Name Role Phone Veto Marquez MD Primary Care Provider Encounter Details Date Type Department Care Team (Late st Contact Info) Description 07/05/2021 Telephone [facility] Oncology [address] 7[address] [place] [id number] Sara Chavez Social History Tobacco Use Types Packs/Day Years Used Date Smoking Tobacco: Never Assessed Sex and Gender Information Value Date Recorded Sex Assigned at Not on file 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
--- OUTSIDE RECORDS SUMMARY | 2024-08-12 19:04 | XMS_ITS | Clinical Summary ---
Author Organization [facility] Address [address] [place] [id number] Care Team Providers Care Mosaic Floor Layer Name Role Phone Veto Marquez MD Primary Care Provider Allergies Active Allergy Reactions Criticality Noted Date Comments Iodinated Contrast Media Hives Medium 09/24/2018 Iodine Hives Medium 03/16/2017 Opioids - Morphine Analogues Itching Low 013 Prednisone Agitation High 09/24/2018 Medications cyclobenzaprine (FLEXERIL) 10 mg tablet Take 10 mg by mouth nightly 07/29/[address] (CYMBALTA) 60 mg capsule Take 60 mg by mouth daily 06/03/2021 Active amLODIPine (NORVASC) 10 mg tablet Take by mouth 02/21/2020 Activ e lisinopril-hydr oCHLOROthiazide (ZESTORETIC) 20-12.5 mg per tablet Take 1 tablet by mouth daily 06/03/2021 Active linagliptin-met formin 2.5-1,000 mg tablet Take by mouth daily Active pantoprazole DR (PROTONIX) 40 mg EC tabletIndicatio ns:reflux Take 1 tablet (40 mg total) by mouth daily 30 tablet 08/01/2021 Active predniSONE (DELTASONE) 50 mg tablet Take 1 tablet (50 mg) by mouth as directed Take 1 tablets [address] scan, [address] scan and [address] scan. 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 08/01/2021 Surgical History Surgery Date Site/Laterality Comments COLONOSCOPY HAND SURGERY BACK SURGERY Medical History Medical History Date Comments Diabetes mellitus (HCC) type 2 Hypertension Hypercholesteremia Non Hodgkin's lymphoma (HCC) Family History Medical History Relation Name Comments Diabetes Father Heart disease Father No Known Problems Mother Diabetes Sister Relation Name Status Comments Father Alive Mother Alive Sister Social History Tobacco Use Types Packs/Day Years Used Date Smoking Tobacco: Some Days Cigarettes 1 45 Smokeless Tobacco: Never Comments:marijuana 45 years AUDIT-C Answer Date Recorded Q1: How often do you have a drink containing alcohol? 2-3 times a week 08/01/2021 Q2: How many drinks containi ng alcohol do you have on a typical day when you are drinking? 10 or more Q3: How often do you have si x or more drinks on one occasion? 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 Not on file Not on file Obstetrics History Last Filed Vital Signs Vital Sign Reading Time Taken Comments Blood Pressure 141/95 08/01/2021 2:38 PM CDT Pulse 101 08/01/2021 2:38 PM CDT Temperature 36.9 C (98.4 F) 08/01/2021 2:38 PM CDT Respiratory Rate 18 08/01/2021 2:38 PM CDT Oxygen Saturation 99% 08/01/2021 2:38 PM CDT Inhaled Oxygen Concentration - - Weight 83.8 kg (184 lb 12.8 oz) 08/01/2021 2:38 PM CDT Height 177.8 cm (5' 10 ) 08/01/2021 2:38 PM CDT Body Mass Index 26.52 08/01/2021 2:38 PM CDT Plan of Treatment Health Maintenance Due Date Last Done Comments Colon Cancer Screening-Colonoscopy 1965 Depression Screening 1965 Hepatitis C Screening 1965 Prostate Cancer Screening-PSA 1965 DTaP/Tdap/Td Vaccine (1 - Tdap) 1976 Hepatitis B Screening 1983 Regular Well Visit/Exam 18-64 1983 Pneumococcal vaccine <65 (1 of 2 - PCV) 1984 Zoster Vaccine (1 of 2) 1984 Influenza Vaccine (Season Ended) 2024 09/13/19 14 Insurance [facility] Care Teams Mosaic Floor Layer Relationship Specialty Start Date End Date Veot Marquez MD PCP - General Family Medicine 08/01/21
--- OUTSIDE RECORDS SUMMARY | 2024-08-12 19:04 | XMS_ITS ---
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 Past Treatment and Therapy Plans No past plan information found. Lifetime Dose Tracking * Chemical Lifetime Dose Automatic Entry Manual Entr y DLP 1,177.9 mGycm 1,177.9 mGycm 0 mGycm
--- OUTSIDE RECORDS SUMMARY | 2024-08-12 19:04 | XMS_ITS | Encounter Summary ---
Author Organization [facility] Address [address] [place] [address] Phone Care Team Providers Care Brush Stainer Name Role Phone Veto Marquez MD Primary Care Provider Encounter Details Date Type Department Care Team (Late st Contact Info) Description 07/05/2021 Telephone [facility] [address] 7th [place] [address] [place] [id number] Stacey Copeland Social History Tobacco Use Types Packs/Day Years Used Date Smoking Tobacco: Never Assessed Sex and Gender Information Value Date Recorded Sex Assigned at Not on file 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
--- OUTSIDE RECORDS SUMMARY | 2024-08-12 19:04 | XMS_ITS | Referral Summary ---
Author Organization [facility] Address [address] [place] [phone] Care Team Providers Care Patient Care Director Name Role Phone Veto Marquez MD Primary [...] 1 hour prior - will need a straddle truck driver. 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
--- OUTSIDE RECORDS SUMMARY | 2024-08-12 19:04 | XMS_ITS | CONTINUITY OF CARE DOCUMENT ---
Author Name kimberley genarovance Address Unknown Organization [facility] Address [address] [place] [address] Phone [phone] Care Team Providers Care Furnace Unloader Name Role Phone Gustavo Chambers MD Unavailable [phone] OTF ENCARNACION, ALVARO F Unavailable OTF ENCARNACION, ALVARO F Unavailable PROBLEMS Condition Status Date Provider Notes CHEST PAIN active Gustavo Chambers MD Shortness of breath active Gustavo Chambers MD Lymphoma non-Hodgekin's active Gustavo Chambers MD Back Pain active Gustavo Chambers MD Hypertension active Johan Kothari Hyperlipidemia active Gustavo Chambers MD CAD active Gustavo Chambers MD ENCOUNTERS Date Type Provider Location Encounter Diag nosis - In-person encounter Office Visit Gustavo Chambers MD [facility] - In-person encounter Office Visit Gustavo Chambers MD [facility] - In-person encounter Office Visit Gustavo Chambers MD [facility] HyperlipidemiaCAD - In-person encounter Office Visit Gustavo Chambers MD [facility] CHEST PAINShortness of breathLymphoma non-Hodgekin'sBack PainHypertension [...] Deshaun Kothari oxygen saturation, oximetry 98 % [facility] Yong blood pressure, diastolic 81 mm[Hg] astity Yong blood pressure, systolic 119 mm[Hg] Twyla stity Yong pulse rate 82 /min [facility] rate E&M 16 /min [...] Scott oxygen saturation, oximetry 99 % Maria Eugenia Chavez respiratory rate E&M 17 /min Maria [...] 8 LDL cholesterol, serum 143 mg/dL Johan [facility] 8 prothrombin time (patient) 11.5 s LinkLog 9.1-12.0 8 international normalized ratio (INR) 1.[address] [facility] 0.8-1.2 8 lipoprotein, beta, serum, point, quantitative, [...] 3.5-5.2 8 sodium, serum 140 mmol/L LinkLogic [phone] urea nitrogen/creatini ne ratio, serum 16 [...] Estab. 8 platelet count 224 X10E3/UL LinkLogic [phone] 8 red blood cell distribution width 13.2 [...] USE Medication Status Instructions Dates Provider Indications [facility] AMLODIPINE BESYLATE 10 MG ORAL TABLET active [...] revi ewed - no changes required Johan [facility] social history E&M Smoking Histo ry: P zach has never smoked. [facility] social history reviewed E&M revi ewed - no changes required Gustavo Chambers MD smoking status Never smoker Suellen Reta torres social history reviewed E&M revi ewed - no changes required [facility] social history E&M Smoking Histo ry: P zach has never smoked. [facility] smoking status Never smoker Maria Eugenia West ams FUNCTIONAL STATUS Date Observation Value Provider HRA, CV Assess/Plan, Angina (inactive) Management Plan continue current therapy Nidia Soriano HRA, CV Assess/Plan, Angina (inactive) Management Plan continue current therapy Johan [facility] HRA, CV Assess/Plan, Angina (inactive) Management Plan continue current therapy Gustavo Chambers MD FAMILY HISTORY Family Member Condition Full Sister Family History of Di abetes: Full Sister Family History of Co ronary Artery Disease: INSURANCE PROVIDERS Payer name Policy type / Coverage type [place] [employer] party ID [place] MEDICAID (2) Medicaid [id number] ADVANCE DIRECTIVES Name Date DISCUSSED - NO [...] (Lisinopril-hydrochlorothiazide) ..... Tk 1 t po qd [facility] Cardiology:Pt compla ins of episodes of chest pain, which have at times woken him up from sleep. He had mild plaque on his cath two years ago. He does not want to undergo cardiac cath at this time. We will schedule an echo. [facility] Cardiology:Pt compla ins of episodes of chest [...] (Lisinopril-hydrochlorothiazide) ..... Tk 1 t po qd [facility] Cardiology hospital follow up :Echo was normal. [...] copy of the CT to Dr. Potts. [facility] follow up :LDL was 143 and he was started on Lipitor. Recommended to check lipid and liver panels in 2 months. [facility] follow up :BP today: 140/80 P rior BP: 130/100 (09/24/2018) H is updated medication list for this problem includes: Metoprolol Tartrate 25 Mg Oral Tablet (Metoprolol tartrate) ..... One tab. twice daily Lisinopril-hydrochlorothiazide 10-12.5 Mg Oral Tablet (Lisinopril-hydrochlorothiazide) ..... Tk 1 t po qd [facility] follow up :Echo was normal. Cardiac [...] ..... Tk 1 t po qd Johan [facility] Cardiology:BP today: 140/90 His updated medication list for this problem includes: Metoprolol Tartrate 25 Mg Oral Tablet (Metoprolol tartrate) ..... One tab. twice daily Lisinopril-hydrochlorothiazide 10-12.5 Mg Oral Tablet (Lisinopril-hydrochlorothiazide) ..... Tk 1 t po qd Johan [facility] Cardiology:He has hx of non-Hodgekin's lymphoma treated in 2011. Johan [facility] Cardiology:Pt compla ins of chest pain and [...] Lopressor 25mg BID and ntg sub/l. Johan [facility] Cardiology:Pt compla ins of chest pain and [...]
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
[2024-08-12 19:08] VITALS: BP 153/97; PULSE 97; RESP 18; TEMP 36.4; O2SAT 100
--- NOTE | 2024-08-13 08:30 | PC.NURSE ---
Left message for patient that thoracic x-ray showed no abnormalities.
== END 2024-08-12 20:23 | disposition left against medical advice (07) ==
PROVIDERS: Emergency Provider Nurse Practitioner; PCP Family Medicine
DX: M54.6 Pain in thoracic spine (principal)
CPT/HCPCS: 72072; 99213; G0463

== ENCOUNTER 2024-09-12 10:13 | Outpatient (CLI) | payer OTHER, SELFPAY ==
[2024-09-12 10:38] LABS: Basophils Percent Auto 0.6 % (0.2-1.2); Eosinophils Absolute Auto 0.3 K/mm3 (0-0.3); Eosinophils Percent Auto 3.9 % (0-4.4); Hematocrit 43.2 % (42.0-52.0); Hemoglobin 13.9 g/dL (14.0-18.0); Immature Granulocyte Absolute 0.02 K/mm3 (0.00-0.031); Immature Granulocyte Percent A 0.3 % (0-0.5); Lymphocytes Absolute Auto 2.25 K/mm3 (0.9-3.2); Lymphocytes Percent Auto 35.4 % (18.3-44.2); Mean Corpuscular HGB Conc 32.2 g/dl (32-36); Mean Corpuscular Hemoglobin 29.6 pg (26-34); Mean Corpuscular Volume 91.9 fl (80-100); Mean Platelet Volume 11.3 fl (7.4-10.4); Monocytes Absolute Auto 0.6 K/mm3 (0.1-0.6); Monocytes Percent Auto 9.3 % (2.6-8.5); Neutrophils Absolute Auto 3.2 K/mm3 (1.3-6.7); Neutrophils Percent Auto 50.5 % (45.5-73.1); Platelet Count Result 206 k/mm3 (150-375); Red Cell Distribution Width 12.7 % (11.5-14.5); White Blood Count 6.4 K/mm3 (4.5-10.0)
--- OUTSIDE RECORDS SUMMARY | 2024-09-12 10:46 | XMS_ITS | Encounter Summary ---
Author Organization [facility] Address [address] [place] [address] Phone Care Team Providers Care Nurse Researcher Name Role Phone Veto Marquez MD Primary Care Provider Encounter Details Date Type Department Care Team (Late st Contact Info) Description 07/05/2021 Telephone [facility] Oncology [address] [place] [address] [place] [phone] Stacey Copeland Social History Tobacco Use Types Packs/Day Years Used Date Smoking Tobacco: Never Assessed Sex and Gender Information Value Date Recorded Sex Assigned at Not on file 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
--- OUTSIDE RECORDS SUMMARY | 2024-09-12 10:46 | XMS_ITS | CONTINUITY OF CARE DOCUMENT ---
Author Name kimberley genarovance Address Unknown Organization [facility] Address [address] [place] [address] Phone [phone] Care Team Providers Care Windows Desktop Support Name Role Phone Gustavo Chambers MD Unavailable [phone] OTF ENCARNACION, ALVARO F Unavailable [phone] OTF ENCARNACION, ALVARO F Unavailable [phone] PROBLEMS Condition Status Date Provider Notes CHEST PAIN active Gustavo Chambers MD Shortness of breath active Gustavo Chambers MD Lymphoma non-Hodgekin's active Gustavo Chambers MD Back Pain active Gustavo Chambers MD Hypertension active Johan Kothari Hyperlipidemia active Gustavo Chambers MD CAD active Gustavo Chambers MD ENCOUNTERS Date Type Provider Location Encounter Diag nosis - In-person encounter Office Visit Gustavo Chambers MD [facility] - In-person encounter Office Visit Gustavo Chambers MD [facility] - In-person encounter Office Visit Gustavo Chambers MD [facility] HyperlipidemiaCAD - In-person encounter Office Visit Gustavo Chambers MD [facility] CHEST PAINShortness of breathLymphoma non-Hodgekin'sBack PainHypertension [...] Deshaun Kothari oxygen saturation, oximetry 98 % [facility] Yong blood pressure, diastolic 81 mm[Hg] astity Yong blood pressure, systolic 119 mm[Hg] Twyla stity Yong pulse rate 82 /min [facility] respiratory rate E&M 16 /min [...] 8 LDL cholesterol, serum 143 mg/dL Johan [facility] 8 prothrombin time (patient) 11.5 s LinkLog 9.1-12.0 8 international normalized ratio (INR) 1.1 [facility] 0.8-1.2 8 lipoprotein, beta, serum, [...] 3.5-5.2 8 sodium, serum 140 mmol/L LinkLogic [phone] urea nitrogen/creatini ne ratio, serum 16 [...] Estab. 8 platelet count 224 X10E3/UL LinkLogic [phone] red blood cell distribution width 13.2 [...] USE Medication Status Instructions Dates Provider Indications [facility] AMLODIPINE BESYLATE 10 MG ORAL TABLET [...] revi ewed - no changes required Johan [facility] social history E&M Smoking Histo ry: P zach has never smoked. [facility] social history reviewed E&M revi ewed - no changes required Gustavo Chambers MD smoking status Never smoker Suellen Reta torres social history reviewed E&M revi ewed - no changes required [facility] social history E&M Smoking Histo ry: P zach has never smoked. [facility] smoking status Never smoker Maria Eugenia West ams FUNCTIONAL STATUS Date Observation Value Provider HRA, CV Assess/Plan, Angina (inactive) Management Plan continue current therapy Nidia Soriano HRA, CV Assess/Plan, Angina (inactive) Management Plan continue current therapy Johan [facility] HRA, CV Assess/Plan, Angina (inactive) Management Plan continue current therapy Gustavo Chambers MD FAMILY HISTORY Family Member Condition Full Sister Family History of Di abetes: Full Sister Family History of Co ronary Artery Disease: INSURANCE PROVIDERS Payer name Policy type / Coverage type [place] [employer] party ID [place] MEDICAID (2) Medicaid [id number] ADVANCE DIRECTIVES Name Date DISCUSSED - NO [...] (Lisinopril-hydrochlorothiazide) ..... Tk 1 t po qd [facility] Cardiology:Pt compla ins of episodes of chest pain, which have at times woken him up from sleep. He had mild plaque on his cath two years ago. He does not want to undergo cardiac cath at this time. We will schedule an echo. [facility] Cardiology:Pt compla ins of episodes [...] (Lisinopril-hydrochlorothiazide) ..... Tk 1 t po qd [facility] Cardiology hospital follow up :Echo [...] copy of the CT to Dr. Potts. [facility] follow up :LDL was 143 and he was started on Lipitor. Recommended to check lipid and liver panels in 2 months. [facility] follow up :BP today: 140/80 P rior BP: 130/100 (09/24/2018) H is updated medication list for this problem includes: Metoprolol Tartrate 25 Mg Oral Tablet (Metoprolol tartrate) ..... One tab. twice daily Lisinopril-hydrochlorothiazide 10-12.5 Mg Oral Tablet (Lisinopril-hydrochlorothiazide) ..... Tk 1 t po qd [facility] follow up :Echo was normal. Cardiac cath [...] ..... Tk 1 t po qd Johan [facility] Cardiology:BP today: 140/90 His updated medication list for this problem includes: Metoprolol Tartrate 25 Mg Oral Tablet (Metoprolol tartrate) ..... One tab. twice daily Lisinopril-hydrochlorothiazide 10-12.5 Mg Oral Tablet (Lisinopril-hydrochlorothiazide) ..... Tk 1 t po qd Johan [facility] Cardiology:He has hx of non-Hodgekin's lymphoma treated in 2011. Johan [facility] Cardiology:Pt compla ins of chest pain and [...] Lopressor 25mg BID and ntg sub/l. Johan [facility] Cardiology:Pt compla ins of chest pain and [...]
--- OUTSIDE RECORDS SUMMARY | 2024-09-12 10:46 | XMS_ITS | Referral Summary ---
Author Organization [facility] Address [address] [place] [phone] Care Team Providers Care Reprint Sorter Name Role Phone Veto Marquez MD Primary [...] 1 hour prior - will need a bicycle taxi driver. 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
--- OUTSIDE RECORDS SUMMARY | 2024-09-12 10:46 | XMS_ITS | Clinical Summary ---
Author Organization [facility] Address [facility] [place] [address] Care Team Providers Care Dry Cleaning Checker Name Role Phone Veto Marquez MD Primary Care Provider [phone] Allergies Active Allergy Reactions Criticality Noted Date [...] Comments Blood Pressure 178/114 04/08/2017 9:48 AM DIRECTOR TRAFFIC AND PLANNING Pulse 96 04/08/2017 9:48 AM DIRECTOR TRAFFIC [employer] PLANNING Temperature 36.9 C (98.4 F) 04/08/2017 8:45 AM DIRECTOR TRAFFIC [employer] PLANNING Respiratory Rate 18 04/08/2017 9:48 AM DIRECTOR TRAFFIC [employer] PLANNING Oxygen Saturation 96% 04/08/2017 9:48 AM DIRECTOR TRAFFIC [employer] PLANNING Inhaled Oxygen Concentration - - Weight 83.3 kg (183 lb 10.3 oz) 04/08/2017 8:45 AM DIRECTOR TRAFFIC AND PLANNING Height 180.3 cm (5' 11 ) 04/08/2017 8:45 AM DIRECTOR TRAFFIC AND PLANNING Body Mass Index 25.61 04/08/2017 8:45 AM DIRECTOR TRAFFIC [employer] PLANNING Plan of Treatment Health Maintenance Due Date [...] patient's age to complete this topic Insurance [facility] Care Teams Dry Cleaning Checker Relationship Specialty Start Date End Date Veto Marquez MD [address] [place], [place] [id number] PCP - General 11/05/16
--- OUTSIDE RECORDS SUMMARY | 2024-09-12 10:46 | XMS_ITS | Clinical Summary ---
Author Organization [facility] Address [address] [place] [phone] Care Team Providers Care Airline Operations Agent Name Role Phone Veto Marquez MD [...] 1 hour prior - will need a operator and truck driver. 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
--- OUTSIDE RECORDS SUMMARY | 2024-09-12 10:46 | XMS_ITS | Encounter Summary ---
Author Organization [facility] Address [address] [place] [address] Phone Care Team Providers Care Air Operations Manager Name Role Phone Veto Marquez MD Primary Care Provider [phone] Encounter Details Date Type Department Care Team (Late st Contact Info) Description 07/05/2021 Telephone [facility] Oncology [address] [facility] 7th [place] [id number] Sara Chavez Social History Tobacco Use Types Packs/Day Years Used Date Smoking Tobacco: Never Assessed Sex and Gender Information Value Date Recorded Sex Assigned at Not on file 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
--- OUTSIDE RECORDS SUMMARY | 2024-09-12 10:46 | XMS_ITS ---
Author Organization [facility] Address [address] [place] [phone] Care Team Providers Care Vp Celebrity Services Name Role Phone Veto Marquez MD Primary [...]
[2024-09-12 10:50] LABS: Alanine Aminotransferase 35 U/L (6-50); Albumin Level 4.6 g/dL (3.5-5.1); Alkaline Phosphatase 73 U/L (38-126); Anion Gap 7 mmol/L (4-12); Aspartate Amino Transferase 35 U/L (17-59); Bilirubin,Total 0.4 mg/dL (0.2-1.3); Blood Urea Nitrogen 19 mg/dL (9-20); Carbon Dioxide 30 mmol/L (22-30); Chloride 104 mmol/L (98-107); Cholesterol 210 mg/dL (0-200); Estimated Glomerular Filt Rate > 60; Glucose 135 mg/dL (65-110); HDL Direct 63 mg/dL; Potassium 4.3 mmol/L (3.4-5.0); Sodium 141 mmol/L (137-145); Triglycerides 126 mg/dL (<150)
[2024-09-12 10:54] LABS: Rheumatoid Factor < 12.0 IU/ML (<12)
[2024-09-12 11:01] LABS: LDL Cholesterol Direct 110 mg/dL
[2024-09-12 11:23] LABS: Prostate Specific Antigen 0.4 ng/mL (< OR = 4.0); Thyroid Stimulating Hormone 0.828 uIU/mL (0.465-4.680)
[2024-09-12 11:26] LABS: Erythrocyte Sedimentation Rate 14 mm/hr (0-20)
[2024-09-12 11:29] LABS: Creatinine Urine 218.6 mg/dL
[2024-09-12 11:33] LABS: MALB Creatinine Ratio 5.5 mg/g (0-30)
[2024-09-13 05:44] LABS: GGT 34 U/L (3-85)
[2024-09-13 06:38] LABS: CRP, High Sensitivity 4.4 mg/L
== END 2024-09-12 10:14 | disposition home or self-care (01) ==
LOC: ANHLAB 10:14
PROVIDERS: PCP Family Medicine; Visit Provider Family Medicine
DX: Z12.5 Encounter for screening for malignant neoplasm of prostate (principal); E78.5 Hyperlipidemia, unspecified; I10 Essential (primary) hypertension; E11.65 Type 2 diabetes mellitus with hyperglycemia; M54.2 Cervicalgia; R79.89 Other specified abnormal findings of blood chemistry; C85.80 Other specified types of non-Hodgkin lymphoma, unspecified site; Z13.220 Encounter for screening for lipoid disorders
CPT/HCPCS: 36415; 80048; 80061; 80076; 82043; 82977; 83036; 84153; 84443; 85025; 85652; 86141; 86430; G0103

== ENCOUNTER 2024-09-26 16:05 | Outpatient (CLI) | payer OTHER, SELFPAY ==
--- NOTE | ~2024-09-26 | CT_ITS ---
Non-contrast CT scan of the Abdomen and Pelvis Clinical indication: Pyelonephritis Technique: 2.5 mm axial scans were obtained through the abdomen and pelvis without intravenous or or al contrast. Dose reduction technique was used on this scan by utilizing automated exposure control a nd iterative reconstruction technique. The dose-length product (DLP) was 622.69 mGy-cm. Findings: Images through the lung bases reveal no abnormalities. There is no evidence of renal or ureteral calculi. The kidneys and the ureters are nondilated. The liver, spleen, pancreas, gallbladder, and adrenals appear normal.. There are atherosclerotic calc ifications of the aorta. There is no evidence of bowel obstruction. Images through the pelvis were performed. There is no evidence of ascites or lymphadenopathy. Right i nguinal hernia contains a portion of the urinary bladder. Fat-containing left inguinal hernia present . No bowel involvement in either hernia. Impression: Moderate right inguinal hernia containing portion of the urinary bladder. Small fat-containing left inguinal hernia. Reviewed, dictated and finalized at location . Impression: Moderate right inguinal hernia containing portion of the urinary bladder. Small fat-containing left inguinal hernia.
== END 2024-09-26 16:06 | disposition home or self-care (01) ==
PROVIDERS: PCP Family Medicine; Visit Provider Surgery
DX: K40.20 Bilateral inguinal hernia, without obstruction or gangrene, not specified as recurrent (principal)
CPT/HCPCS: 74176

== ENCOUNTER 2024-12-05 07:33 | Outpatient (CLI) | payer OTHER, SELFPAY ==
--- OUTSIDE RECORDS SUMMARY | 2024-12-05 07:40 | XMS_ITS | Clinical Summary ---
Author Organization [facility] Address [facility] [place] [address] Care Team Providers Care Golf Sales Associate Name Role Phone Veto Marquez MD Primary Care Provider [phone] Allergies Active Allergy Reactions Criticality Noted Date [...] Comments Blood Pressure 178/114 04/08/2017 9:48 AM SPEECH AND LANGUAGE ASSISTANT Pulse 96 04/08/2017 9:48 AM SPEECH AND LANGUAGE ASSISTANT Temperature 36.9 C (98.4 F) 04/08/2017 8:45 AM SPEECH AND LANGUAGE ASSISTANT Respiratory Rate 18 04/08/2017 9:48 AM SPEECH AND LANGUAGE ASSISTANT Oxygen Saturation 96% 04/08/2017 9:48 AM SPEECH AND LANGUAGE ASSISTANT Inhaled Oxygen Concentration - - Weight 83.3 kg (183 lb 10.3 oz) 04/08/2017 8:45 AM SPEECH AND LANGUAGE ASSISTANT Height 180.3 cm (5' 11) 04/08/2017 8:45 AM SPEECH AND LANGUAGE ASSISTANT Body Mass Index 25.61 04/08/2017 8:45 AM SPEECH AND LANGUAGE ASSISTANT Plan of Treatment Health Maintenance Due Date [...] patient's age to complete this topic Insurance [employer] Care Teams Golf Sales Associate Relationship Specialty Start Date End Date Veto Marquez MD [address] [place], [place] [phone] PCP - General 11/05/16
--- NOTE | 2024-12-05 07:51 | ECG_ITS ---
Test Date: 2024-12-05 08:04:19 Measurements Intervals Wheeler Rate: 50 P: 33 CT: 135 QRS: 42 QRSD: 92 T: 38 QT: 380 QTc: 348 Interpretive Statements SINUS BRADYCARDIA WITH SINUS ARRHYTHMIA BASELINE ARTIFACT- I, II, III ,AVR, AVL, AVF BORDERLINE ECG No previous ECG available for comparison Electronically Signed On 12-05-2024 08:31:46 CDT by John Ivey D.O.
[2024-12-05 08:21] LABS: Anion Gap 9 mmol/L (4-12); Blood Urea Nitrogen 26 mg/dL (9-20); Calcium 9.0 mg/dL (8.4-10.2); Carbon Dioxide 25 mmol/L (22-30); Chloride 102 mmol/L (98-107); Estimated Glomerular Filt Rate > 60; Glucose 217 mg/dL (65-110); Potassium 4.3 mmol/L (3.4-5.0); Sodium 136 mmol/L (137-145)
== END 2024-12-05 07:34 | disposition home or self-care (01) ==
LOC: ANHSURGERY 07:37
PROVIDERS: Anesthesiology; PCP Family Medicine; Visit Provider Surgery
DX: K40.20 Bilateral inguinal hernia, without obstruction or gangrene, not specified as recurrent (principal); Z79.899 Other long term (current) drug therapy; I10 Essential (primary) hypertension
CPT/HCPCS: 36415; 80048; 86850; 86900; 86901; 93005

== ENCOUNTER 2024-12-08 01:22 | Day surgery (SDC) | payer OTHER, SELFPAY ==
[2024-12-01 10:04] VITALS: BMI 25.0
--- NOTE | 2024-12-01 10:15 | PC.NURSE ---
Report to the Outpatient Waiting Room, entrance under the green pavilion located off [facility], at time _0600_ on date _[id number]_. Planned Procedure Time: _0730_.? Time changes happen often and if your time is changed the preop area will call you the afternoon before. - You and your visitor will be asked to self-screen and do not enter if you have any COVID symptoms. Please call surgeon if you need to reschedule. - A mask is optional within the hospital at this time. Patients may have clear liquids (water, carbonated beverages, clear teas, apple juice) until 3 hours prior to surgery with a maximum of 20 ounces. - No food from midnight until time of surgery and no smoking, or chewing tobacco (or any form of nicotine). No chewing gum, candy or mints. Take only the following medications with a SIP of water on the morning of surgery: ___Metoprolol and Amlodipine____ DO NOT STOP ANY OF YOUR OTHER PRESCRIPTION MEDICATIONS PRIOR TO SURGERY EXCEPT THE FOLLOWING Hold all vitamins and supplements for 3 days per anesthesiologist. Medications to discontinue per physician Date to take last dose Please no make-up, nail estonian, hairspray, perfume, deodorant, or body powder the day of surgery.? No jewelry (including any body piercings) or valuables the day of surgery, leave them at home.? Please take a shower or bath the night before, or the morning of, surgery with an antibacterial soap.? Wear comfortable, loose fitting clothing.? - Jewelry must be removed prior to entering the operating room.? Rings and piercings that are not removed may be cut off. - The hospital will not accept responsibility for valuables.? - Please leave all valuables, including medications, at home the day of surgery. If you are going home after surgery, a licensed non emergency services ambulance driver must drive you home.? - NO public transportation without another adult if you receive anesthesia. - We recommend that an adult stay with you for 24 hours following discharge. - We also recommend that you do not drive, make important decision, drink alcoholic beverages, or take any drugs that were not prescribed by your health care provider for at least 24 hours after your discharge time. Follow any additional instructions given to you from your surgeon. Telephone instructions given to __Johnathany__and asked if any additional questions and then verbalized understanding. Patient advised to call surgeon office or pre surgery nurse liaison [phone] if any additional questions.
[2024-12-08] VITALS (10 sets, daily range): BP systolic 120–171; BP diastolic 76–95; PULSE 65–84; RESP 10–16; TEMP 36.5–36.9; O2SAT 98–100
--- OUTSIDE RECORDS SUMMARY | 2024-12-08 01:24 | XMS_ITS | Clinical Summary ---
Author Organization [facility] Address [facility] [place] [address] Care Team Providers Care Solution Coordinator Name Role Phone Veto Marquez MD Primary Care Provider [phone] Allergies Active Allergy Reactions Criticality Noted Date [...] Comments Blood Pressure 178/114 04/08/2017 9:48 AM COMMERCIAL MANAGEMENT ACCOUNTANT Pulse 96 04/08/2017 9:48 AM COMMERCIAL MANAGEMENT ACCOUNTANT Temperature 36.9 C (98.4 F) 04/08/2017 8:45 AM COMMERCIAL MANAGEMENT ACCOUNTANT Respiratory Rate 18 04/08/2017 9:48 AM COMMERCIAL MANAGEMENT ACCOUNTANT Oxygen Saturation 96% 04/08/2017 9:48 AM COMMERCIAL MANAGEMENT ACCOUNTANT Inhaled Oxygen Concentration - - Weight 83.3 kg (183 lb 10.3 oz) 04/08/2017 8:45 AM COMMERCIAL MANAGEMENT ACCOUNTANT Height 180.3 cm (5' 11) 04/08/2017 8:45 AM COMMERCIAL MANAGEMENT ACCOUNTANT Body Mass Index 25.61 04/08/2017 8:45 AM COMMERCIAL MANAGEMENT ACCOUNTANT Plan of Treatment Health Maintenance Due Date [...] patient's age to complete this topic Insurance [employer] Care Teams Solution Coordinator Relationship Specialty Start Date End Date Veto Marquez MD [address] [place], [place] [phone] PCP - General 11/05/16
[2024-12-08] MEDS: KETOROLAC 15 MG/ML VIAL (*BKC) IV PUSH (06:30)
[2024-12-08] MEDS: ACETAMINOPHEN 500 MG TABLET 1000 MG PO (06:30)
[2024-12-08] MEDS: LACTATED RINGERS 1,000 ML 30 ML IV CONT ×2 (06:30→09:23)
--- NOTE | 2024-12-08 06:57 | P.PNAN_ITS ---
Anes - Initial Pre Proc Eval Procedure: Operation Date: 12/08/24 07:30 Proposed Procedures p Robotic Assisted Recurrent Incarcerated Right Inguinal Hernia Repair with Mesh, Left Inguinal Hernia Repair with Mesh - Tessa Mart MD Date/Time: 12/08/24 06:57 Surgeon: Tessa Mart MD Pre Op Diagnosis: incarcerated right ing hernia, left ing hernia Patient Data Age: 59 Gender: M Height: 1.8 m Weight: 81.4 kg Allergies Allergy/AdvReac Type Severity Reaction Status Date / Time linagliptin (From [facility]) Allergy Severe Swelling Verified 12/01/24 10:03 of Lip/Tongue/Throat metformin (From [facility]) Allergy Severe Swelling Verified 12/01/24 10:03 of Lip/Tongue/Throat codeine Allergy Unknown Unknown Verified 12/01/24 10:03 Iodinated Contrast Media Allergy Unknown Unknown Verified 12/01/24 10:03 tramadol Allergy Unknown Unknown Verified 12/01/24 10:03 dapagliflozin (From [facility]) AdvReac Intermediate Swelling Verified 12/01/24 10:03 of Lip/Tongue/Throat hydrocodone AdvReac Intermediate Itching Verified 12/01/24 10:03 prednisone AdvReac Unknown MAKES ME Verified 12/01/24 10:03 ANGRY Home Medications ?Medication ?Instructions ?Recorded ?Confirmed ?Type cyclobenzaprine 10 mg tablet 10 mg PO TID PRN muscle spasm #90 09/06/24 12/01/24 Rx tabs diclofenac sodium 1 % topical gel 4 g topical QID #500 grams 09/06/24 12/01/24 Rx metoprolol succinate 50 mg 50 mg PO DAILY #30 tabs 09/06/24 12/01/24 Rx tablet,extended release 24 hr losartan 100 1 tablet PO DAILY #90 tabs 09/27/24 12/01/24 Rx mg-hydrochlorothiazide 25 mg tablet amlodipine 5 mg tablet 5 mg PO DAILY #90 tabs 10/25/24 12/01/24 Rx Patient hx anesthesia problems: none Family hx anesthesia problems: none Results Review: All pre-operative results and documents have been reviewed as part of the pre- operative evaluation. [facility] Past Medical History Medical History (Updated 12/08/24 @ 06:58 by Brice Foley DO) Hypertension Arthritis Blunt injury of back Screening for prostate cancer Lung nodule Hand tendonitis Right hand pain Mass in neck Chronic epigastric pain Other chronic pain Surgical History Surgical History Hx of lymphoma, non-Hodgkins 2011 History of back surgery 2001 Hx of hand surgery 1972 Family History Family History Father Acute myocardial infarction Social History Social History (Updated 12/08/24 @ 07:09 by Brice Foley DO) Social History: pt is a non smoker Smoking status: Never smoker Alcohol intake: current Drinks per week: 1 Substance use: current Substance use type: marijuana Current Housing: Decline to Answer Concerned About Future Housing: Decline to Answer Difficulty Paying Gas/Electric Bills: Decline to Answer Difficulty Paying for Meds: Decline to Answer Currently Unemployed: Decline to Answer Education: Decline to Answer Difficulty w/ Childcare or Family Care: Decline to Answer Living arrangements: with family Spiritual care concerns: No Anes - Eval Final PreProcedure Day of Procedure 12/08/24 06:57 Patient weight: normal Heart: regular rate and rhythm Lungs: clear to auscultation and normal air movement Airway: Mallampati scale class II Neurological: alert and oriented Last oral intake: >/= 8 hours ASA classification: II Emergent: no Anesthetic plan: proceed Anesthesia type and monitoring: general ETT and standard monitoring Results Review: All pre-operative results and documents have been reviewed as part of the pre- operative evaluation. Informed Consent: The patient's anesthetic plan and its attendant risks and benefits were discussed with the patient/family/POA. Questions were solicited and answers provided to the satisfaction of the patient/family/POA.
--- NOTE | 2024-12-08 07:16 | P.HP_ITS ---
H&P: HPI History of Present Illness Date/Time: 12/08/24 07:16 Chief Complaint: Bilateral inguinal hernia Narrative: Be is a 59 y/o male who presents to the office at the request of Veto Marquez MD for an evaluation of right groin pain and reducible bulge. Patient reports he had a previous right inguinal hernia repair in 2000 that had complications. He states he felt the recurrence happened in approximately 2010. He states it has gotten larger over the years. He reports tolerating a normal diet and has regular BM's and urine output. in the office, patient also with some mild left groin discomfort. Exam revealed bilateral inguinal hernia right greater than left. Review of Systems Review of Systems: All systems reviewed & are unremarkable except as noted in HPI and below PMFSH Past Medical History Medical History Hypertension Arthritis Blunt injury of back Screening for prostate cancer Lung nodule Hand tendonitis Right hand pain Mass in neck Chronic epigastric pain Other chronic pain Surgical History Surgical History Hx of lymphoma, non-Hodgkins 2010 History of back surgery 2001 Hx of hand surgery 1972 Family History Family History Father Acute myocardial infarction Social History Social History Social History: pt is a non smoker Smoking status: Never smoker Alcohol intake: current Drinks per week: 1 Substance use: current Substance use type: marijuana Current Housing: Decline to Answer Concerned About Future Housing: Decline to Answer Difficulty Paying Gas/Electric Bills: Decline to Answer Difficulty Paying for Meds: Decline to Answer Currently Unemployed: Decline to Answer Education: Decline to Answer Difficulty w/ Childcare or Family Care: Decline to Answer Living arrangements: with family Spiritual care concerns: No Meds Home Medications and Allergies Home Medications ?Medication ?Instructions ?Recorded ?Confirmed ?Type cyclobenzaprine 10 mg tablet 10 mg PO TID PRN muscle spasm #90 09/06/24 12/01/24 Rx tabs diclofenac sodium 1 % topical gel 4 g topical QID #500 grams 09/06/24 12/01/24 Rx metoprolol succinate 50 mg 50 mg PO DAILY #30 tabs 09/06/24 12/01/24 Rx tablet,extended release 24 hr losartan 100 1 tablet PO DAILY #90 tabs 09/27/24 12/01/24 Rx mg-hydrochlorothiazide 25 mg tablet amlodipine 5 mg tablet 5 mg PO DAILY #90 tabs 10/25/24 12/01/24 Rx Allergies Allergy/AdvReac Type Severity Reaction Status Date / Time linagliptin (From [facility]) Allergy Severe Swelling Verified 12/01/24 10:03 of Lip/Tongue/Throat metformin (From [facility]) Allergy Severe Swelling Verified 12/01/24 10:03 of Lip/Tongue/Throat codeine Allergy Unknown Unknown Verified 12/01/24 10:03 Iodinated Contrast Media Allergy Unknown Unknown Verified 12/01/24 10:03 tramadol Allergy Unknown Unknown Verified 12/01/24 10:03 dapagliflozin (From [facility]) AdvReac Intermediate Swelling Verified 12/01/24 10:03 of Lip/Tongue/Throat hydrocodone AdvReac Intermediate Itching Verified 12/01/24 10:03 prednisone AdvReac Unknown MAKES ME Verified 12/01/24 10:03 ANGRY Exam Const: General: cooperative, comfortable and no acute distress Resp: Auscultation: clear to auscultation bilaterally Cardio: Rate: regular rate Rhythm: regular rhythm GI: Inspection: normal to inspection and visible herniation GI Palp: Yes abdominal tenderness, Yes Soft to palpation, Yes Tenderness to palpation present (GI) and Yes Hernia present Other: Bilateral inguinal hernia right greater than left Assessment and Plan Assessment and plan (1) Bilateral inguinal hernia: Qualifiers: Obstruction and gangrene presence: without obstruction or gangrene Recurrence: non-recurrent Qualified Code(s): K40.20 - Bilateral inguinal hernia, without obstruction or gangrene, not specified as recurrent Code(s): K40.20 - Bilateral inguinal hernia, without obstruction or gangrene, not specified as recurrent Status: Acute Assessment and Plan: will set up for robotic assisted bilateral inguinal hernia repair with mesh, right side recurrent
--- NOTE | 2024-12-08 07:18 | WPDHPUPDATE1 ---
History and Physical Update Update Date/Time: 12/08/24 07:18 History and Physical has been reviewed, including an updated exam of the patient. There are NO changes in the patient's condition. Risks, benefits, and alternatives have been discussed and questions answered. Patient agrees to proceed with procedure.
[2024-12-08] MEDS: ceFAZolin 2 GM in SODIUM CHLORIDE 0.9% IV 50 ML 100 ML IVPB (07:30)
[2024-12-08] MEDS: BUPIVACAINE/EPINEPHRINE 0.5% 30 ML VIAL INFILTRATE (08:14)
--- NOTE | 2024-12-08 09:20 | P.OP_ITS ---
Procedure Note - Detailed Date of Procedure 12/08/24 Pre-op Diagnosis robotic assisted repair recurrent, incarcerated right inguinal hernia, left inguinal hernia Post-op Diagnosis Same Procedure Performed robotic assisted repair recurrent, incarcerated right inguinal hernia, left inguinal hernia Surgeon Tessa Mart MD Anesthesia General and Local Indications 59-year-old male presenting to the office with a large recurrent, incarcerated right inguinal hernia and also a moderate-sized left inguinal hernia Findings recurrent, incarcerated right pantaloon hernia, moderate-sized left direct hernia Description of Procedure Patient was brought into the operating room and placed in the supine position. After adequate induction of general anesthesia, the patient was prepped and draped in normal sterile fashion. A time-out was then done to verify the patient's identity, as well as the procedure being performed. I began by making a 8 mm incision in the supraumbilical region, a Veress needle was then placed into the peritoneal cavity. CO2 gas was then insufflated and after adequate pneumoperitoneum was achieved, the Veress needle was removed. I then placed an 8 mm trocar through this incision. I then placed the endoscope through this trocar site and under direct visualization placed 2 further 8 mm ports in the right and left mid abdomen. The Alaris Royal[employer]inci robot was then docked to the 3 trocar sites. I then scrubbed out and went to the robotic console. Upon examining the pelvis, it was noted that the patient had a large sized right inguinal hernia. The left side was examined and a moderate hernia defect was noted. I began by making a preperitoneal flap approximately 6 cm superior to the right sided defect. This flap was carried medially past the umbilical ligaments and laterally to the transversalis. It then began dissection of my medial compartment taking this down to the pubic tubercle. Upon dissection of this area, a large direct hernia was encountered. I was able to dissect and reduce this incarcerated direct hernia. Of note, there was noted to be a previously placed mesh plug in this area causing a significant amount inflammatory changes adhesions. I was able to dissect the hernia off this plug while leaving the plug in place. I then began the lateral dissection taking this down to the transversalis fascia. Once these compartments were achieved, I began dissection around the cord structures. A moderate sized indirect hernia was noted at this point. Using careful dissection, was able to reduce indirect hernia sac off the cord structures. Once this was adequately done, I went ahead and placed a large piece of 3D Max mesh into the abdominal cavity. The mesh was carefully positioned, centering the center of the mesh over the direct defect. Once this was done, was very satisfied with our repair. Using 3-0 Vicryl sutures, I tacked the mesh medially to Rafi's ligament. Two lateral sutures were placed from the mesh to the transversalis fascia. I then began on the left side by making a preperitoneal flap approximately 6 cm superior to the left sided defect. This flap was carried medially past the umbilical ligaments and laterally to the transversalis. It then began dissection of my medial compartment taking this down to the pubic tubercle. Again, a moderate-sized direct hernia was encountered. I was able to reduce this hernia back into the preperitoneal space. I then began the lateral dissection taking this down to the transversalis fascia. Once these compartments were achieved, I began dissection around the cord structures. No indirect hernia was noted at this point. Once this was adequately done, I went ahead and placed a large piece of 3D Max mesh into the abdominal cavity. The mesh was carefully positioned, centering the center of the mesh over the direct defect. Once this was done, was very satisfied with our repair. Using 3-0 Vicryl sutures, I tacked the mesh medially to Rafi's ligament. Two lateral sutures were placed from the mesh to the transversalis fascia.I then closed the peritoneal flap bilaterally with running 2.0 V Lock suture x 2. The abdomen was then desufflated, and all ports were removed. All incisions were then closed with the 4.0 monocryl suture. Dermabond was placed on each wound. The patient tolerated the procedure well, was extubated in the operating room postoperatively, and will now be transferred to the recovery room in stable condition. Implants bilateral large 3DMax mesh Estimated Blood Loss 25 Drains No Packing No Pathology None sent Complications No immediate complications Condition Stable Disposition PACU [facility] Billing Surgery - Charge Forward: Surgery Billing
[2024-12-08] MEDS: INSULIN HUMAN REGULAR (*BKC) 100 UNITS/ML IV PUSH (09:53)
[2024-12-08] MEDS: oxyCODONE HCL (*CRX) 5 MG TAB IR PO (10:45)
== END 2024-12-08 11:32 | disposition home or self-care (01) ==
PROVIDERS: PCP Family Medicine; Visit Provider Surgery
PROC: 8E0Y4CZ Robotic Assisted Procedure of Lower Extremity, Percutaneous Endoscopic Approach (ICD-10-PCS; CPT 49650; principal; 2024-12-08 07:30)
DX: K40.31 Unilateral inguinal hernia, with obstruction, without gangrene, recurrent (principal); K40.90 Unilateral inguinal hernia, without obstruction or gangrene, not specified as recurrent; I10 Essential (primary) hypertension; M19.90 Unspecified osteoarthritis, unspecified site; G89.29 Other chronic pain; R10.13 Epigastric pain; F13.90 Sedative, hypnotic, or anxiolytic use, unspecified, uncomplicated; Z79.899 Other long term (current) drug therapy; Z98.890 Other specified postprocedural states; Z98.1 Arthrodesis status; Z85.72 Personal history of non-Hodgkin lymphomas; Z82.49 Family history of ischemic heart disease and other diseases of the circulatory system
CPT/HCPCS: 49651; 49650; S2900; 82948; J0690; A9270; C1781; J1100; J1815; J1885; J2003; J2250; J2405; J2704; J3010; J7030; J7120

== ENCOUNTER 2025-01-10 09:00 | Outpatient (CLI) | payer OTHER, SELFPAY ==
--- NOTE | ~2025-01-10 | XR_ITS ---
EXAMINATION: XR hand LT min 3V DATE: 01/10/2025 09:24 INDICATION: Left anterior third digit pain TECHNIQUE: 4 images of the left hand were obtained. COMPARISON: None. FINDINGS: Mild degenerative change in the first carpometacarpal joint. Soft tissue swelling about the third digit. [ No radiographic evidence for an acute fracture or dislocation.] [ No radiopaque foreign body.] [ No sclerotic or destructive bone lesions.] IMPRESSION: 1. No fracture. No dislocation. 2. Soft tissue swelling about the third digit. If symptoms persist or worsen consider a short-term follow-up study or additional imaging for further assessment. Reviewed, dictated and finalized at location Q. IMPRESSION: 1. No fracture. No dislocation. 2. Soft tissue swelling about the third digit. If symptoms persist or worsen consider a short-term follow-up study or addition al imaging for further assessment.
--- NOTE | ~2025-01-10 | XR_ITS ---
XR hand RT min 3V 01/10/2025 09:24 Indication: Chronic right hand pain Procedure: 3 views right hand Comparison: No prior studies for comparison. Findings: There is mild-moderate polyarticular osteoarthritis of the wrist and hand. No acute fracture or traumatic malalignment. No foreign bodies. No focal soft tissue abnormality. Impression: 1: Mild-moderate polyarticular osteoarthritis. Reviewed, dictated and finalized at location O. Impression: 1: Mild-moderate polyarticular osteoarthritis.
--- OUTSIDE RECORDS SUMMARY | 2025-01-10 10:11 | XMS_ITS | Clinical Summary ---
Author Organization [facility] Address [address] [place] [phone] Care Team Providers Care Production Cloth Cutter Name Role Phone Veto Marquez MD Primary [...] 1 hour prior - will need a motor driver. 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 Not on file Not on file Not on file Obstetrics History Last Filed Vital Signs Vital Sign Reading Time Taken Comments Blood Pressure 141/95 08/01/2021 2:38 PM CDT Pulse 101 08/01/2021 2:38 PM CDT Temperature 36.9 C (98.4 F) 08/01/2021 2:38 PM CDT Respiratory Rate 18 08/01/2021 2:38 PM CDT Oxygen Saturation 99% 08/01/2021 2: 38 PM CDT Inhaled Oxygen Concentration - - Weight 83.8 kg (184 lb 12.8 oz) 08/01/2021 2:38 PM CDT Height 177.8 cm (5' 10) 08/01/2021 2:38 PM CDT Body Mass Index 26.52 08/01/2021 2:38 PM CDT Plan of Treatment Not on file Insurance [facility] Care Teams Production Cloth Cutter Relationship Specialty Start Date End Date Veto Marquez MD PCP - General Family Medicine 08/01/21
--- OUTSIDE RECORDS SUMMARY | 2025-01-10 10:11 | XMS_ITS ---
Author Organization [facility] Address [address] [place] [phone] Care Team Providers Care Computer Education Teacher Name Role Phone Veto Marquez MD Primary [...]
--- OUTSIDE RECORDS SUMMARY | 2025-01-10 10:11 | XMS_ITS | Encounter Summary ---
Author Organization [facility] Address [address] [place] [address] Phone Care Team Providers Care Intellectual Property Counsel Name Role Phone Veto Marquez MD Primary Care Provider [phone] Encounter Details Date Type Department Care Team (Late st Contact Info) Description 07/05/2021 Telephone 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
--- OUTSIDE RECORDS SUMMARY | 2025-01-10 10:11 | XMS_ITS | Encounter Summary ---
Author Organization [facility] Address [address] [place] [address] Phone Care Team Providers Care Point Of Care Technician Name Role Phone Veto Marquez MD Primary Care Provider [phone] Encounter Details Date Type Department Care Team (Late st Contact Info) Description 07/05/2021 Telephone [facility] On[facility] [address] [facility] [address] 7th [place] [id number] Sara Chavez Social History Tobacco Use Types Packs/Day Years Used Date Smoking Tobacco: Never Assessed Sex and Gender Information Value Date Recorded Sex Assigned at Not on file Legal Sex 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
== END 2025-01-10 09:01 | disposition home or self-care (01) ==
PROVIDERS: PCP Family Medicine; Visit Provider Plastic Surgery
DX: M79.642 Pain in left hand (principal); M19.041 Primary osteoarthritis, right hand
CPT/HCPCS: 73130

== ENCOUNTER 2025-04-18 09:30 | Outpatient (RCR) | payer OTHER, SELFPAY ==
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
--- NOTE | 2025-03-14 09:12 | OPREHPOC ---
Outpatient Therapy Plan of Care This is a Multidisciplinary Plan of Care that may contain components documented by all disciplines (PT, OT, and ST.) OT Problem 1 OT Problem #1 Knowledge Deficit OT Goal 1 Goal / Goal Update 1. Patient to be independent with instructed materials and splint wearing schedule. Target Visit 6 OT Problem 2 OT Problem #2 Pain OT Goal 1 Goal / Goal Update 1. Patient to report reduced (R) hand pain to none at rest and mild with use. 2. Patient to report reduced (L) hand pain to mild with use. Target Visit 6 OT Problem 3 OT Problem #3 Impaired Strength OT Goal 1 Goal / Goal Update Patient to improve bilateral wrist/hand strength for improved functional use during ADLs: 1. 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 each. 2. Be able to tolerate pinch strengthening with at least yellow putty x5 minutes on the right hand with mild pain. 3. Increase left palmar pinch strength by 3 lbs. Target Visit 6
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
--- NOTE | 2025-04-18 11:49 | OPREHPOC ---
Outpatient Therapy Plan of Care This is a Multidisciplinary Plan of Care that may contain components documented by all disciplines (PT, OT, and ST.) OT Problem 1 OT Problem #1 Knowledge Deficit OT Goal 1 Goal / Goal Update 1. Patient to be independent with instructed materials and splint wearing schedule. ---OT D/C 04/18/25--- 1. Not met Target Visit 6 OT Problem 2 OT Problem #2 Pain OT Goal 1 Goal / Goal Update 1. Patient to report reduced (R) hand pain to none at rest and mild with use. 2. Patient to report reduced (L) hand pain to mild with use. ---OT D/C 04/18/25--- 1. Not met 2. Not met Target Visit 6 OT Problem 3 OT Problem #3 Impaired Strength OT Goal 1 Goal / Goal Update Patient to improve bilateral wrist/hand strength for improved functional use during ADLs: 1. 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 2. Be able to tolerate pinch strengthening with at least yellow putty x5 minutes on the right hand with mild pain. 3. Increase left palmar pinch strength by 3 lbs. ---OT D/C 04/18/25--- 1. Not met 2. Not met 3. Not met Target Visit 6
== END 2025-04-18 16:04 | disposition home or self-care (01) ==
LOC: ANHGOSHOT 09:30
PROVIDERS: PCP Family Medicine; Visit Provider Plastic Surgery
DX: M18.11 Unilateral primary osteoarthritis of first carpometacarpal joint, right hand (principal); M65.30 Trigger finger, unspecified finger
CPT/HCPCS: 97018; 97035; 97110; 97140; 97165; 97530; L3913